=== PATIENT | female | born 1940 | race Caucasian/White ===

== ENCOUNTER 2017-08-25 19:20 | Emergency (ER) | payer MEDICARE, OTHER ==
[~2017-08-25] VITALS: Ht 170.2 cm; Wt 81.7 kg
[~2017-08-25 19:20] MED LIST: ACET325 PO; ALBU.083IS IH; ALBU3IS INH; ALBU90OI INH; ALBU90OI6 INH; ALBUIS IH; AMLO5 PO; AMOX500 PO; AMOX875 PO; ASCO1ER PO; AZIT250 PO; Aspirin EC81 MG PO; BENZ100A PO; CIPR500 PO; CLIN150 PO; CYCL10 PO; DOXY100 PO; FLUSAL1005 IH; FLUSAL2505 IH; FLUT.05NI; FLUT110OIA IH; FLUT44OIA IH; FLUTICASONE PROPIONA; GLIM2 PO; GLIP5 PO; GUAIFENESIN PO; HYDCHLSU PO; Keflex500 MG PO; LORA10ER PO; METF500 PO; METF500C; MONT10T PO; Mucinex600 MG PO; OMEP20ER PO; OXYM.05NI; PRED10 PO; PRED20 PO; PROCODE120 PO; PROM25 PO; PSEU120ER PO; Percocet 5-3251 EACH PO; Prednisone20 MG PO; Prilosec20 MG PO; RXHYDACE PO; RXPROCODSY PO; SELENIUM PO; SULTRIDS PO; XOLAIR INJ
[2017-08-25] MEDS ORDERED: [UNRECOGNIZED DRUG - OTHER] (19:49)
[2017-08-25 20:32] LABS: Alanine Aminotransfer (ALT/SGP 59 U/L (12-78); Alk Phos 106 U/L (50-136); Anion Gap 9 mmol/L (6-16); Aspartate Aminotrans (AST/SGOT 53 U/L (12-37); Bilirubin, Total 0.5 mg/dL (0.1-1.0); Blood Urea Nitrogen 15 mg/dL (8-24); Bun/Creatinine Ratio 20.1 (12.0-20.0); CO2, Blood 25 mmol/L (21-32); Calcium, Blood 9.5 mg/dL (8.5-10.1); Chloride, Blood 104 mmol/L (98-108); Creatinine, Blood 0.75 mg/dL (0.40-1.00); Glomerular Filtration Rate >60 (60-); Glucose, Blood 91 mg/dL (70-99); Potassium, Blood 3.8 mmol/L (3.5-5.5); Sodium, Blood 138 mmol/L (136-145); Troponin I <0.015 ng/mL (0.000-0.040)
[2017-08-25 20:34] LABS: BASOPHILS ABSOLUTE AUTO 0.03 K/mm3 (0.00-0.23); BASOPHILS PERCENT AUTO 0 % (0-2); EOSINOPHILS PERCENT AUTO 14 % (0-6); Hematocrit 40.7 % (33.0-51.0); Hemoglobin 14.1 g/dL (11.5-16.0); IMMATURE GRAN ABSOLUTE AUTO 0.02 K/mm3 (0.00-0.10); IMMATURE GRAN PERCENT AUTO 0 % (0-1); LYMPHOCYTES ABSOLUTE AUTO 3.73 K/mm3 (0.84-5.20); LYMPHOCYTES PERCENT AUTO 37 % (21-46); MONOCYTES ABSOLUTE AUTO 0.46 K/mm3 (0.16-1.47); MONOCYTES PERCENT AUTO 5 % (4-13); Mean Corpuscular HGB 31.8 pg (26.0-34.0); Mean Corpuscular HGB Conc 34.6 g/dL (31.5-36.5); Mean Corpuscular Volume 92 fL (80-100); Mean Platelet Volume 10.9 fL (9.1-12.4); NEUTROPHILS ABSOLUTE AUTO 4.47 K/mm3 (1.96-9.15); NEUTROPHILS PERCENT AUTO 44 % (41-73); Platelet Count 219 K/mm3 (150-400); RDW Coefficient Variation 12.7 % (11.7-14.2); RDW Standard Deviation 42.6 fL (35.1-46.3); Red Blood Cell Count 4.44 M/mm3 (3.80-5.20); White Blood Cell Count 10.11 K/mm3 (4.00-11.30)
[2017-08-25 21:22] LABS: Adenovirus Not Detected (NOT DETECT); Bordetella pertussis Not Detected (NOT DETECT); Chlamydophila pneumoniae Not Detected (NOT DETECT); Coronavirus 229E Not Detected (NOT DETECT); Coronavirus HKU1 Not Detected (NOT DETECT); Coronavirus NL63 Not Detected (NOT DETECT); Coronavirus OC43 Not Detected (NOT DETECT); Human Metapneumovirus Not Detected (NOT DETECT); Human Rhinovirus/Enterovirus Not Detected (NOT DETECT); Influenza A/2009-H1 Not Detected (NOT DETECT); Influenza A/H1 Not Detected (NOT DETECT); Influenza A/H3 Not Detected (NOT DETECT); Influenza B Not Detected (NOT DETECT); Mycoplasma pneumoniae Not Detected (NOT DETECT); Parainfluenza Virus 1 Not Detected (NOT DETECT); Parainfluenza Virus 2 Not Detected (NOT DETECT); Parainfluenza Virus 3 Not Detected (NOT DETECT); Parainfluenza Virus 4 Not Detected (NOT DETECT); Respiratory Syncytial Virus Not Detected (NOT DETECT)
[2017-08-25 21:52] LABS: Source, Urine Clean Catch
[2017-08-25 21:54] LABS: Bilirubin, Urine Neg (Neg); Blood, Urine 1+ (Neg); Glucose Qualitative, Urine Neg (Neg); Ketones, Urine Neg (Neg); Leukocyte Esterase, Urine 3+ (Neg); Nitrite, Urine Neg (Neg); Protein, Urine Neg (Neg); Urobilinogen, Urine NORM (Normal)
[2017-08-25 21:58] LABS: Appearance, Urine Hazy (Clear); Color, Urine Pale Yellow (P-Yellow)
[2017-08-25 22:00] LABS: Bacteria Few /hpf; Red Blood Cells, Urine Rare /hpf (0-2); Squamous Epithelial Cells Rare /hpf (Few); White Blood Cells, Urine 50-100 /hpf (0-5)
[2017-08-25 22:51] LABS: Influenza A Not Detected (NOT DETECT)
[2017-08-25] MEDS ORDERED: BENZ100A PO (23:01)
[2017-08-25] MEDS ORDERED: Mucinex600 MG PO (23:01)
[2017-08-25] MEDS ORDERED: Zithromax250 MG PO (23:01)
== END 2017-08-26 00:05 | disposition home or self-care (01) ==
LOC: ER 19:20
PROVIDERS: Emergency Medicine; Physician Assistant
DX: R05 Cough (principal); Z88.2 Allergy status to sulfonamides; Z88.5 Allergy status to narcotic agent; Z88.8 Allergy status to other drugs, medicaments and biological substances; Z79.899 Other long term (current) drug therapy; Z79.84 Long term (current) use of oral hypoglycemic drugs; Z79.82 Long term (current) use of aspirin; Z79.2 Long term (current) use of antibiotics; E11.9 Type 2 diabetes mellitus without complications
CPT/HCPCS: 36415; 71046; 80053; 81001; 83880; 84484; 85025; 87086; 87486; 87581; 87633; 87798; 93005; 93010; 96365; 99284; J0696

== ENCOUNTER → 2019-03-17 | Outpatient (CLI) | payer MEDICARE, OTHER ==
[~2019-03-17] MED LIST changes: +Zithromax250 MG PO; +[UNRECOGNIZED DRUG - OTHER]
[2019-03-21 15:07] LABS: HPV 16 Negative (Negative); HPV 18 Negative (Negative); HPV OTHER HR TYPES Negative (Negative)
== END | disposition home or self-care (01) ==
LOC: LAB 10:24 → LAB SHORT 10:24
PROVIDERS: Nurse Practitioner Women's Health
DX: Z12.72 Encounter for screening for malignant neoplasm of vagina (principal)
CPT/HCPCS: 87624; G0123

== ENCOUNTER → 2019-07-07 | Outpatient (CLI) | payer MEDICARE, OTHER | END | disposition home or self-care (01) | LOC: LAB SHORT 17:38 → LAB 17:38 | DX: N89.8 Other specified noninflammatory disorders of vagina (principal) | CPT/HCPCS: 87070; 87205 ==

== ENCOUNTER → 2019-10-30 | Outpatient (CLI) | payer MEDICARE, OTHER | LOC: LAB EV 16:42 → LAB SHORT 16:42 | DX: N39.0 Urinary tract infection, site not specified (principal) | CPT/HCPCS: 87077; 87086; 87186 ==

== ENCOUNTER → 2020-05-16 | Outpatient (CLI) | payer MEDICARE, OTHER ==
[~2020-05-16] MED LIST changes: +ALBU2.5V5 INH; +DELTASONE20 MG PO
[2020-05-16 12:13] LABS: BASOPHILS ABSOLUTE AUTO 0.03 K/mm3 (0.00-0.23); BASOPHILS PERCENT AUTO 0 % (0-2); EOSINOPHILS ABSOLUTE AUTO 0.85 K/mm3 (0.00-0.68); EOSINOPHILS PERCENT AUTO 11 % (0-6); Hematocrit 38.7 % (33.0-51.0); Hemoglobin 13.4 g/dL (11.5-16.0); IMMATURE GRAN ABSOLUTE AUTO 0.03 K/mm3 (0.00-0.10); IMMATURE GRAN PERCENT AUTO 0 % (0-1); LYMPHOCYTES ABSOLUTE AUTO 1.35 K/mm3 (0.84-5.20); LYMPHOCYTES PERCENT AUTO 18 % (21-46); MONOCYTES PERCENT AUTO 7 % (4-13); Mean Corpuscular HGB 31.5 pg (26.0-34.0); Mean Corpuscular HGB Conc 34.6 g/dL (31.5-36.5); Mean Corpuscular Volume 91 fL (80-100); Mean Platelet Volume 10.6 fL (9.1-12.4); NEUTROPHILS ABSOLUTE AUTO 4.71 K/mm3 (1.96-9.15); NEUTROPHILS PERCENT AUTO 63 % (41-73); Platelet Count 153 K/mm3 (150-400); RDW Coefficient Variation 12.8 % (11.7-14.2); RDW Standard Deviation 41.6 fL (35.1-46.3); Red Blood Cell Count 4.25 M/mm3 (3.80-5.20); White Blood Cell Count 7.47 K/mm3 (4.00-11.30)
[2020-05-16 12:32] LABS: Albumin, Blood 3.8 g/dL (3.4-5.0); Bilirubin, Total 0.8 mg/dL (0.1-1.0); Bun/Creatinine Ratio 9.9 (12.0-20.0); Calcium, Blood 9.1 mg/dL (8.5-10.1); Creatinine, Blood 1.01 mg/dL (0.40-1.00); Globulin, Blood 3.7 g/dL (2.2-4.0); Potassium, Blood 3.8 mmol/L (3.5-5.5); Thyroid Stimulating Hormone 1.219 uIU/mL (0.360-4.800); Total Protein, Blood 7.5 g/dL (6.4-8.2)
== END | disposition home or self-care (01) ==
LOC: LAB EV 12:06 → LAB SHORT 12:06
PROVIDERS: Physician Assistant Medical
DX: R05 Cough (principal); R53.83 Other fatigue
CPT/HCPCS: 80053; 84443; 85025

== ENCOUNTER 2020-05-23 17:51 | Emergency (ER) | payer MEDICARE, OTHER ==
[~2020-05-23] VITALS: Ht 170.2 cm; Wt 76.2 kg
[~2020-05-23 17:51] MED LIST changes: -DELTASONE20 MG PO
[2020-05-23 18:53] LABS: BASOPHILS ABSOLUTE AUTO 0.06 K/mm3 (0.00-0.23); BASOPHILS PERCENT AUTO 1 % (0-2); EOSINOPHILS ABSOLUTE AUTO 1.02 K/mm3 (0.00-0.68); EOSINOPHILS PERCENT AUTO 17 % (0-6); Hematocrit 40.9 % (33.0-51.0); Hemoglobin 13.6 g/dL (11.5-16.0); IMMATURE GRAN ABSOLUTE AUTO 0.02 K/mm3 (0.00-0.10); IMMATURE GRAN PERCENT AUTO 0 % (0-1); LYMPHOCYTES ABSOLUTE AUTO 1.86 K/mm3 (0.84-5.20); LYMPHOCYTES PERCENT AUTO 31 % (21-46); MONOCYTES ABSOLUTE AUTO 0.46 K/mm3 (0.16-1.47); MONOCYTES PERCENT AUTO 8 % (4-13); Mean Corpuscular HGB 30.8 pg (26.0-34.0); Mean Corpuscular HGB Conc 33.3 g/dL (31.5-36.5); Mean Corpuscular Volume 93 fL (80-100); NEUTROPHILS PERCENT AUTO 43 % (41-73); Platelet Count 192 K/mm3 (150-400); RDW Coefficient Variation 12.9 % (11.7-14.2); RDW Standard Deviation 44.5 fL (35.1-46.3); Red Blood Cell Count 4.41 M/mm3 (3.80-5.20); White Blood Cell Count 6.02 K/mm3 (4.00-11.30)
[2020-05-23 19:18] LABS: Alanine Aminotransfer (ALT/SGP 44 U/L (12-78); Albumin, Blood 3.6 g/dL (3.4-5.0); Albumin/Globulin Ratio 0.9 (0.8-1.8); Alk Phos 89 U/L (50-136); Anion Gap 6 mmol/L (6-16); Aspartate Aminotrans (AST/SGOT 31 U/L (12-37); Bilirubin, Total 0.5 mg/dL (0.1-1.0); Blood Urea Nitrogen 4 mg/dL (8-24); Bun/Creatinine Ratio 6.4 (12.0-20.0); CO2, Blood 28 mmol/L (21-32); Calcium, Blood 9.6 mg/dL (8.5-10.1); Chloride, Blood 107 mmol/L (98-108); Creatinine, Blood 0.63 mg/dL (0.40-1.00); Globulin, Blood 3.8 g/dL (2.2-4.0); Glomerular Filtration Rate >60 (60-); Glucose, Blood 329 mg/dL (70-99); Potassium, Blood 3.8 mmol/L (3.5-5.5); Sodium, Blood 141 mmol/L (136-145); Total Protein, Blood 7.4 g/dL (6.4-8.2); Troponin I <0.015 ng/mL (0.000-0.040)
[2020-05-24] MEDS ORDERED: DELTASONE20 MG PO (00:46)
== END 2020-05-24 00:58 | disposition home or self-care (01) ==
LOC: ER 17:51
PROVIDERS: Physician Assistant
DX: J40 Bronchitis, not specified as acute or chronic (principal); E11.9 Type 2 diabetes mellitus without complications; Z88.4 Allergy status to anesthetic agent; Z88.8 Allergy status to other drugs, medicaments and biological substances; Z79.84 Long term (current) use of oral hypoglycemic drugs; Z79.82 Long term (current) use of aspirin; Z79.899 Other long term (current) drug therapy
CPT/HCPCS: 36415; 71046; 80053; 83880; 84484; 85025; 85379; 93005; 93010; 99285-25; J7512

== ENCOUNTER 2020-06-13 03:15 | Inpatient (IN) | payer MEDICARE, OTHER ==
[~2020-06-13] VITALS: Ht 170.2 cm; Wt 71.1 kg
[~2020-06-13 03:15] MED LIST changes: +DELTASONE20 MG PO
[2020-06-13] MEDS ORDERED: GLIP5 PO (03:32)
[2020-06-13 03:35] LABS: BASOPHILS ABSOLUTE AUTO 0.04 K/mm3 (0.00-0.23); BASOPHILS PERCENT AUTO 0 % (0-2); EOSINOPHILS ABSOLUTE AUTO 1.77 K/mm3 (0.00-0.68); EOSINOPHILS PERCENT AUTO 19 % (0-6); Hematocrit 38.5 % (33.0-51.0); Hemoglobin 12.8 g/dL (11.5-16.0); IMMATURE GRAN ABSOLUTE AUTO 0.02 K/mm3 (0.00-0.10); IMMATURE GRAN PERCENT AUTO 0 % (0-1); LYMPHOCYTES ABSOLUTE AUTO 3.39 K/mm3 (0.84-5.20); LYMPHOCYTES PERCENT AUTO 36 % (21-46); MONOCYTES ABSOLUTE AUTO 0.66 K/mm3 (0.16-1.47); MONOCYTES PERCENT AUTO 7 % (4-13); Mean Corpuscular HGB 31.1 pg (26.0-34.0); Mean Corpuscular HGB Conc 33.2 g/dL (31.5-36.5); Mean Corpuscular Volume 94 fL (80-100); Mean Platelet Volume 10.5 fL (9.1-12.4); NEUTROPHILS ABSOLUTE AUTO 3.46 K/mm3 (1.96-9.15); NEUTROPHILS PERCENT AUTO 37 % (41-73); Platelet Count 154 K/mm3 (150-400); RDW Coefficient Variation 13.1 % (11.7-14.2); RDW Standard Deviation 45.2 fL (35.1-46.3); Red Blood Cell Count 4.11 M/mm3 (3.80-5.20); White Blood Cell Count 9.34 K/mm3 (4.00-11.30)
[2020-06-13 03:58] LABS: Alanine Aminotransfer (ALT/SGP 35 U/L (12-78); Albumin, Blood 3.4 g/dL (3.4-5.0); Albumin/Globulin Ratio 0.9 (0.8-1.8); Alk Phos 78 U/L (50-136); Anion Gap 10 mmol/L (6-16); Aspartate Aminotrans (AST/SGOT 28 U/L (12-37); Bilirubin, Total 0.5 mg/dL (0.1-1.0); Blood Urea Nitrogen 7 mg/dL (8-24); Bun/Creatinine Ratio 10.7 (12.0-20.0); CO2, Blood 26 mmol/L (21-32); Calcium, Blood 8.9 mg/dL (8.5-10.1); Chloride, Blood 104 mmol/L (98-108); Creatinine, Blood 0.66 mg/dL (0.40-1.00); Globulin, Blood 3.9 g/dL (2.2-4.0); Glomerular Filtration Rate >60 (60-); Glucose, Blood 242 mg/dL (70-99); Potassium, Blood 3.5 mmol/L (3.5-5.5); Sodium, Blood 140 mmol/L (136-145); Total Protein, Blood 7.3 g/dL (6.4-8.2); Troponin I <0.015 ng/mL (0.000-0.040)
--- NOTE | 2020-06-13 04:57 | NUR ---
0440 PT ADMITTED TO PCU-7 PER CART FROM ER; PT MOVED FROM CART TO BED PER SELF X 1 STANDBY ASSIST; REPORT RECEIVED FROM NURYS CANTRELL VIA ER; DENIES PAIN OR NAUSEA; ALERT AND ORIENTED X 4; BED ALARM APPLIED FOR SAFETY, BED LOW POSITION WITH CALL LIGHT AT SIDE.
--- NOTE | 2020-06-13 05:31 | NUR ---
SHIFT SUMMARY: 80 Y/O FEMALE RESTED COMFORTABLY IN THIS SHIFT; NPO AT THIS TIME; DENIES PAIN OR NAUSEA; TELEMETRY REFLECTS SINUS TACHYCARDIA PER TELEMETRY PER INA--CHAZ TECH; ALERT AND ORIENTED X 4; BED ALARM APPLIED, BED LOW POSITION WITH CALL LIGHT AT SIDE.
--- NOTE | 2020-06-13 11:53 | NUR ---
Patient is lying in bed and alert. Patient very talkative and openly shares about her medical history, family history and her saji history (patient is church) . Patient explains about the of her spouse in 2008 with tears in her eyes. Patient also talks about the current jasbir of being able to help raise her grandson and granddaughter. I listen empathically, reinforce helpful attitudes and practices and provide grief support, pastoral relationship counselor and prayer. Patient responds well and shows signs of restored saji and being encouraged. I will continue to remain available to patient and family.
[2020-06-13 14:56] LABS: Adenovirus Not Detected (NOT DETECT); Bordetella pertussis Not Detected (NOT DETECT); Chlamydophila pneumoniae Not Detected (NOT DETECT); Coronavirus 229E Not Detected (NOT DETECT); Coronavirus HKU1 Not Detected (NOT DETECT); Coronavirus NL63 Not Detected (NOT DETECT); Coronavirus OC43 Not Detected (NOT DETECT); Human Metapneumovirus Not Detected (NOT DETECT); Human Rhinovirus/Enterovirus Not Detected (NOT DETECT); Influenza A/2009-H1 Not Detected (NOT DETECT); Influenza A/H1 Not Detected (NOT DETECT); Influenza A/H3 Not Detected (NOT DETECT); Influenza B Not Detected (NOT DETECT); Mycoplasma pneumoniae Not Detected (NOT DETECT); Parainfluenza Virus 1 Not Detected (NOT DETECT); Parainfluenza Virus 2 Not Detected (NOT DETECT); Parainfluenza Virus 3 Not Detected (NOT DETECT); Parainfluenza Virus 4 Not Detected (NOT DETECT); Respiratory Syncytial Virus Not Detected (NOT DETECT); SARS-Cov-2 (COVID-19), BioFire Not Detected (NOT DETECT)
--- NOTE | 2020-06-13 17:42 | NUR ---
SHIFT SUMMARY; A/A/OX4 DURING SHIFT, SBA ASSIST TO RESTROOM WITH WALKER USE. STEADY ON FEET. DENIES SOB, REMAINS ON RA. L/S WHEEZY THROUGHOUT, REPORTS RECENTLY BEING TOLD HAS ASTHMA. MEDICATED PER ORDERS DURING SHIFT. NO ACUTE MEDICAL CHANGES, WILL CONTINUE TO MONITOR AND TREAT UNTIL CHANGE OF SHIFT. VSS.
--- NOTE | 2020-06-13 22:19 | NUR ---
NOTIFIED [place] FRIEND OF 483 CBG. NEW ORDERS FOR ONE TIME INSULIN COVERAGE OBTAINED. SEE EMAR. PT ASYMPTOMATIC, IS CURRENTLY RESTING COMFORTABLY IN BED WITH CALL LIGHT IN REACH AND DENIES NEEDS. WILL ADMINISTER MEDICATION PER ORDERS AND CONT TO MONITOR PATIENT FOR CHANGES.
--- NOTE | 2020-06-14 03:40 | NUR ---
SHIFT SUMMARY PT A/OX4 WITH VSS. CBG ELEVATED, SEE PREVIOUS NOTE. MEDICATED X1 FOR HYPERGLYCEMIA. LS WHEEZY T/O, BREATHING TX X 1. USING FLUTTER VALVE PRN. MEDICATED 1X FOR COUGHING EPISODE. AMB WITH SBA TO BATHROOM, DENIES SOB OR DYSPNEA. SPO2 ABOVE 93% ON RA. PT CURRENTLY RESTING IN BED WITH EYES CLOSED IN SEMI FOLWER POSITION. HAS CALL LIGHT IN REACH WITH BED IN LOWEST POSITION. WILL CONTINUE TO MONITOR AND GIVE SHIFT CHANGE REPORT TO ONCOMING RN.
[2020-06-14 04:40] LABS: BASOPHILS ABSOLUTE AUTO 0.01 K/mm3 (0.00-0.23); BASOPHILS PERCENT AUTO 0 % (0-2); EOSINOPHILS ABSOLUTE AUTO 0.01 K/mm3 (0.00-0.68); EOSINOPHILS PERCENT AUTO 0 % (0-6); Hemoglobin 11.3 g/dL (11.5-16.0); IMMATURE GRAN ABSOLUTE AUTO 0.06 K/mm3 (0.00-0.10); IMMATURE GRAN PERCENT AUTO 1 % (0-1); LYMPHOCYTES ABSOLUTE AUTO 1.68 K/mm3 (0.84-5.20); LYMPHOCYTES PERCENT AUTO 18 % (21-46); MONOCYTES ABSOLUTE AUTO 0.27 K/mm3 (0.16-1.47); MONOCYTES PERCENT AUTO 3 % (4-13); Mean Corpuscular HGB 30.7 pg (26.0-34.0); Mean Corpuscular HGB Conc 33.2 g/dL (31.5-36.5); Mean Corpuscular Volume 92 fL (80-100); Mean Platelet Volume 11.2 fL (9.1-12.4); NEUTROPHILS ABSOLUTE AUTO 7.27 K/mm3 (1.96-9.15); NEUTROPHILS PERCENT AUTO 78 % (41-73); Platelet Count 144 K/mm3 (150-400); RDW Coefficient Variation 13.1 % (11.7-14.2); RDW Standard Deviation 44.5 fL (35.1-46.3); Red Blood Cell Count 3.68 M/mm3 (3.80-5.20)
[2020-06-14 05:09] LABS: Alanine Aminotransfer (ALT/SGP 32 U/L (12-78); Albumin, Blood 3.1 g/dL (3.4-5.0); Albumin/Globulin Ratio 0.9 (0.8-1.8); Alk Phos 64 U/L (50-136); Anion Gap 10 mmol/L (6-16); Aspartate Aminotrans (AST/SGOT 18 U/L (12-37); Bilirubin, Total 0.6 mg/dL (0.1-1.0); Blood Urea Nitrogen 22 mg/dL (8-24); Bun/Creatinine Ratio 33.5 (12.0-20.0); CO2, Blood 24 mmol/L (21-32); Calcium, Blood 9.1 mg/dL (8.5-10.1); Chloride, Blood 105 mmol/L (98-108); Creatinine, Blood 0.66 mg/dL (0.40-1.00); Globulin, Blood 3.4 g/dL (2.2-4.0); Glomerular Filtration Rate >60 (60-); Glucose, Blood 263 mg/dL (70-99); Potassium, Blood 3.9 mmol/L (3.5-5.5); Sodium, Blood 139 mmol/L (136-145); Total Protein, Blood 6.5 g/dL (6.4-8.2)
--- NOTE | 2020-06-14 07:24 | NUR ---
SHIFT CHANGE REPORT GIVEN TO NURYS ACHARYA
--- NOTE | 2020-06-14 08:52 | NUR ---
permission of care was given 06/14/20 at 0730.
--- NOTE | 2020-06-14 12:52 | NUR ---
PATIENT ARRIVED TO THE UNIT AT 1250. NO COMPLAINTS AT THIS TIME. WILL CONTINUE TO MONITOR
--- NOTE | 2020-06-14 17:48 | NUR ---
PATIENT IS ALERT AND ORIENTED AND COOPERATIVE WITH CARE. SHE TRANSFERRED TO MEDICAL FLOOR FROM PCU THIS AFTERNOON. PATIENT IS SATURATING 96% ON RA, WITH NO COMPLAINTS OF SOB. SHE IS A SBA TO THE BATHROOM. SHE IS SITTING ON THE SIDE OF THE BED EATING DINNER AT THIS TIME. WILL CONTINUE TO MONITOR
--- NOTE | 2020-06-15 05:06 | NUR ---
SHIFT SUMMARY: VSS. AFEB. 02 SAT 95% ON RA. LATE EXP WHEEZE AUSCULTATED THROUGHOUT. PT DENIES SOB. INTERMITTENT HACKING, PRODUCTIVE COUGH. PT STATES SPUTUM GETS CAUGHT IN THROAT WHERE SHE THEN COUGHS MORE ON IT. STATES SPUTUM IS CLEAR TO YELLOW AND THICK. TESSALON PERRLES AND ROBITUSSIN GIVEN EFFECTIVELY. NO ACUTE CONCERNS AT THIS TIME. WILL CONT TO MONITOR.
--- NOTE | 2020-06-15 07:37 | NUR ---
NOC NURSE GAVE REPORT, PT AWAKE, NOTED tremors in hands when taking medication, able to talk wo sob, wheeze/exhale, old bump on l foot, denies pain to feet or hands, bm yesterday, a+o, cooperative, call light in reach, changed pull up, cbg 301, looking forward to breakfast, will continue to monitor and treat
--- NOTE | 2020-06-15 11:45 | NUR ---
dr in to visit, concerned with lack of control of cbg, will check again andsee if lower, pt states she does not ck bs at home
--- NOTE | 2020-06-15 12:41 | NUR ---
cbg 313 changed insulin order and informed pt she would need to spend the night, changed other meds to help control bs
--- NOTE | 2020-06-15 13:54 | NUR ---
Patient is sitting on EOB and alert. Patient explains about the health and financial issues her grandson has been having and the tangible ways she has been able to help him. She talks about the living arrangements she has with her daughter living with her and two of her other daughter's kids and how they have a daycare in their home. This turns out to be a bit noisey and not very restful. Patient asks me to prayer for her grandson and for patient's blood sugar levels. I gladly provide prayer. I normalize patient's experience, provide therapeutic listening and encourage self care. Patient responds well and shows signs of an elevated mood. I will continue to remain available to patient and family.
--- NOTE | 2020-06-15 19:19 | NUR ---
a+o, family at bedside, shared sbar report with noc nurse who agreed to work with pt about how to check bs, day shift went over it but she needs to do it on own at home, cheerful and cooperative, iv and call light working as designed
--- NOTE | 2020-06-15 20:33 | NUR ---
1950 PTS DAUGHTER AT SIDE WITH PATIENT AND WAS INSTRUCTED ON THE FOLLOWING REGARDING DIABETES: 1. SITES TO GIVE INSULIN: ABD, BILATERAL ARMS; BILATERAL LEGS VASTUS LATERALUS; BUTTOCKS. 2. CHECKING INSULIN SCALE AND READING HOW MUCH INSULIN TO GIVE. 3. CHECKING INSULIN PEN AND HOW TO ADMINISTER CORRECT AMOUNT OF INSULIN. 4. RECORDING CBG AND AMOUNT INSULIN GIVEN DAILY. 5. READING FOOD LABELS: PT/DAUGHTER READ ENSURE SHAKE AND PUDDING CONTAINER. REINFORCEMENT REQUIRED.
--- NOTE | 2020-06-16 03:17 | NUR ---
SHIFT SUMMARY: 80 Y/O FEMALE RESTED COMFORTABLY ALL SHIFT; DENIES PAIN OR NAUSEA; PT HAD COUGH MIDDLE OF SHIFT WITH ROBITUSSIN AND TESSALON PEARLES PROVIDING RELIEF; PT AND DAUGHTER ROBBI WERE EDUCATED ON DIABETES AND HOW TO CHECK CBG, GIVE INSULIN WITH FURTHER REINFORCEMENT REQUIRED; PT/CG WOULD BENEFIT FROM HOME HEALTH CARE REFERRAL FOR RN CONTINUED TEACHING ON DM UPON DISCHARGE HOME; PT ALERT AND ORIENTED X 4 AND EAGER TO RETURN HOME; BED ALARM APPLIED FOR SAFETY, BED LOW POSITION WITH CALL LIGHT AT SIDE.
[2020-06-16] MEDS ORDERED: AZIT500 PO (12:53)
[2020-06-16] MEDS ORDERED: Q-Tussin100 MG/5 M PO (12:54)
[2020-06-16] MEDS ORDERED: GLIP5ER PO (12:55)
[2020-06-16] MEDS ORDERED: Prednisone10 MG PO (12:57)
[2020-06-16] MEDS ORDERED: IPRAT-ALBUT 0.5-3 ML INH (12:59)
[2020-06-16] MEDS ORDERED: MONT10T PO (12:59)
--- NOTE | 2020-06-16 14:25 | NUR ---
DISCHARGE DISCHARGE INSTRUCTIONS, MEDICATION LIST AND FOLLOW UP APPOINTMENTS REVIEWED WITH PT. QUESTIONS/CONCERNS ANSWERED. [facility] TO CALL PT TO SET UP APPOINTMENT WITH HER PCP OR SHE CAN CALL [facility] ON THURSDAY. PT ESCORTED OUT VIA W/C BY SANDEE
== END 2020-06-16 15:22 | disposition home or self-care (01) | DRG 202 ==
LOC: ER 03:15 → PCU 03:16 → MEDS 06-14 12:39
PROVIDERS: Emergency Medicine; ADMIT Internal Medicine
DX: J45.41 Moderate persistent asthma with (acute) exacerbation (principal); J96.01 Acute respiratory failure with hypoxia; E11.9 Type 2 diabetes mellitus without complications; Z79.82 Long term (current) use of aspirin; G25.0 Essential tremor; E11.65 Type 2 diabetes mellitus with hyperglycemia; M19.90 Unspecified osteoarthritis, unspecified site; T38.0X5A Adverse effect of glucocorticoids and synthetic analogues, initial encounter; Y92.230 Patient room in hospital as the place of occurrence of the external cause; J20.9 Acute bronchitis, unspecified; Z79.84 Long term (current) use of oral hypoglycemic drugs
CPT/HCPCS: 0202U; 36415; 71045; 80053; 82947; 83880; 84484; 85025; 93005; 93010; 94640; 94644; 94664; 94667; 94668; 94760; 96372; 96374; 96376; 98960; 99285-25; A9270-GY; G0378; J1650; J2930; J7512

== ENCOUNTER 2021-02-03 12:03 | Emergency (ER) | payer MEDICARE, OTHER ==
[~2021-02-03] VITALS: Ht 170.2 cm; Wt 68.0 kg
[~2021-02-03 12:03] MED LIST changes: +AZIT500 PO; +GLIP5ER PO; +IPRAT-ALBUT 0.5-3 ML INH; +Prednisone10 MG PO; +Q-Tussin100 MG/5 M PO
[2021-02-03 12:43] LABS: BASOPHILS ABSOLUTE AUTO 0.02 K/mm3 (0.00-0.23); BASOPHILS PERCENT AUTO 0 % (0-2); EOSINOPHILS PERCENT AUTO 38 % (0-6); Hematocrit 35.5 % (33.0-51.0); Hemoglobin 12.1 g/dL (11.5-16.0); IMMATURE GRAN ABSOLUTE AUTO 0.05 K/mm3 (0.00-0.10); IMMATURE GRAN PERCENT AUTO 0 % (0-1); LYMPHOCYTES PERCENT AUTO 10 % (21-46); MONOCYTES ABSOLUTE AUTO 0.47 K/mm3 (0.16-1.47); MONOCYTES PERCENT AUTO 4 % (4-13); Mean Corpuscular HGB 31.4 pg (26.0-34.0); Mean Corpuscular HGB Conc 34.1 g/dL (31.5-36.5); Mean Corpuscular Volume 92 fL (80-100); Mean Platelet Volume 9.9 fL (9.1-12.4); NEUTROPHILS ABSOLUTE AUTO 5.56 K/mm3 (1.96-9.15); NEUTROPHILS PERCENT AUTO 47 % (41-73); Platelet Count 164 K/mm3 (150-400); RDW Coefficient Variation 12.3 % (11.7-14.2); RDW Standard Deviation 42.3 fL (35.1-46.3); Red Blood Cell Count 3.85 M/mm3 (3.80-5.20)
[2021-02-03 13:02] LABS: Alanine Aminotransfer (ALT/SGP 26 U/L (12-78); Albumin, Blood 3.4 g/dL (3.4-5.0); Albumin/Globulin Ratio 0.9 (0.8-1.8); Alk Phos 86 U/L (50-136); Anion Gap 6 mmol/L (6-16); Aspartate Aminotrans (AST/SGOT 14 U/L (12-37); Bilirubin, Total 0.6 mg/dL (0.1-1.0); Blood Urea Nitrogen 13 mg/dL (8-24); Bun/Creatinine Ratio 17.2 (12.0-20.0); CO2, Blood 25 mmol/L (21-32); Calcium, Blood 8.9 mg/dL (8.5-10.1); Chloride, Blood 105 mmol/L (98-108); Creatinine, Blood 0.76 mg/dL (0.40-1.00); Globulin, Blood 3.8 g/dL (2.2-4.0); Glomerular Filtration Rate >60 (60-); Glucose, Blood 267 mg/dL (70-99); Sodium, Blood 136 mmol/L (136-145); Total Protein, Blood 7.2 g/dL (6.4-8.2)
[2021-02-03 14:07] LABS: Source, Urine Clean Catch
[2021-02-03 14:17] LABS: Appearance, Urine Clear (Clear); Bilirubin, Urine Neg (Neg); Blood, Urine Neg (Neg); Color, Urine Yellow (P-Yellow); Glucose Qualitative, Urine 4+ (Neg); Ketones, Urine 1+ (Neg); Leukocyte Esterase, Urine 2+ (Neg); Nitrite, Urine Neg (Neg); Protein, Urine 2+ (Neg); Urobilinogen, Urine 2+ (Normal)
[2021-02-03 14:27] LABS: Red Blood Cells, Urine Not Seen /hpf (0-2)
[2021-02-03 14:28] LABS: Bacteria Mod /hpf; Mucus Light (0-Heavy); Squamous Epithelial Cells Few /hpf (Few)
[2021-02-03] MEDS ORDERED: AQUAPHOR ITCH R28 GM TOP (14:57)
[2021-02-03] MEDS ORDERED: Macrobid 100 M100 MG PO (14:57)
== END 2021-02-03 15:03 | disposition home or self-care (01) ==
LOC: ER 12:03
PROVIDERS: Physician Assistant
DX: N39.0 Urinary tract infection, site not specified (principal); E11.9 Type 2 diabetes mellitus without complications; Z79.52 Long term (current) use of systemic steroids; Z79.899 Other long term (current) drug therapy
CPT/HCPCS: 36415; 80053; 81001; 82947; 85025; 87086; 99283

== ENCOUNTER 2021-02-05 01:00 | Emergency (ER) | payer MEDICARE, OTHER ==
[~2021-02-05] VITALS: Ht 170.2 cm; Wt 68.0 kg
[~2021-02-05 01:00] MED LIST changes: +AQUAPHOR ITCH R28 GM TOP; +Macrobid 100 M100 MG PO
[2021-02-05 03:03] LABS: BASOPHILS ABSOLUTE AUTO 0.04 K/mm3 (0.00-0.23); BASOPHILS PERCENT AUTO 0 % (0-2); EOSINOPHILS ABSOLUTE AUTO 6.23 K/mm3 (0.00-0.68); EOSINOPHILS PERCENT AUTO 44 % (0-6); Hematocrit 38.2 % (33.0-51.0); Hemoglobin 13.1 g/dL (11.5-16.0); IMMATURE GRAN ABSOLUTE AUTO 0.03 K/mm3 (0.00-0.10); IMMATURE GRAN PERCENT AUTO 0 % (0-1); LYMPHOCYTES ABSOLUTE AUTO 1.47 K/mm3 (0.84-5.20); LYMPHOCYTES PERCENT AUTO 10 % (21-46); MONOCYTES ABSOLUTE AUTO 0.55 K/mm3 (0.16-1.47); MONOCYTES PERCENT AUTO 4 % (4-13); Mean Corpuscular HGB 31.1 pg (26.0-34.0); Mean Corpuscular HGB Conc 34.3 g/dL (31.5-36.5); Mean Corpuscular Volume 91 fL (80-100); Mean Platelet Volume 10.2 fL (9.1-12.4); NEUTROPHILS ABSOLUTE AUTO 5.77 K/mm3 (1.96-9.15); NEUTROPHILS PERCENT AUTO 41 % (41-73); Platelet Count 187 K/mm3 (150-400); RDW Coefficient Variation 12.4 % (11.7-14.2); RDW Standard Deviation 40.9 fL (35.1-46.3); Red Blood Cell Count 4.21 M/mm3 (3.80-5.20); White Blood Cell Count 14.09 K/mm3 (4.00-11.30)
[2021-02-05 03:18] LABS: Alanine Aminotransfer (ALT/SGP 28 U/L (12-78); Albumin, Blood 3.6 g/dL (3.4-5.0); Albumin/Globulin Ratio 0.9 (0.8-1.8); Alk Phos 83 U/L (50-136); Anion Gap 9 mmol/L (6-16); Aspartate Aminotrans (AST/SGOT 15 U/L (12-37); Bilirubin, Total 0.5 mg/dL (0.1-1.0); Blood Urea Nitrogen 13 mg/dL (8-24); Bun/Creatinine Ratio 20.5 (12.0-20.0); CO2, Blood 24 mmol/L (21-32); Calcium, Blood 9.1 mg/dL (8.5-10.1); Chloride, Blood 103 mmol/L (98-108); Creatinine, Blood 0.63 mg/dL (0.40-1.00); Glomerular Filtration Rate >60 (60-); Glucose, Blood 195 mg/dL (70-99); Magnesium, Blood 1.9 mg/dL (1.6-2.4); Potassium, Blood 3.6 mmol/L (3.5-5.5); Sodium, Blood 136 mmol/L (136-145); Total Protein, Blood 7.6 g/dL (6.4-8.2); Troponin I <0.015 ng/mL (0.000-0.040)
[2021-02-05] MEDS ORDERED: Prednisone50 MG PO (06:45)
== END 2021-02-05 08:02 | disposition home or self-care (01) ==
LOC: ER 01:00
PROVIDERS: Emergency Medicine
DX: J44.0 Chronic obstructive pulmonary disease with (acute) lower respiratory infection (principal); J18.9 Pneumonia, unspecified organism; J44.1 Chronic obstructive pulmonary disease with (acute) exacerbation; J98.01 Acute bronchospasm; Z79.84 Long term (current) use of oral hypoglycemic drugs; Z79.899 Other long term (current) drug therapy
CPT/HCPCS: 36415; 71045; 80053; 83735; 83880; 84484; 85025; 93005; 93010; 94644; 99285-25; A9270; J7512

== ENCOUNTER → 2021-10-03 | Outpatient (CLI) | payer MEDICARE, OTHER ==
[~2021-10-03] MED LIST changes: +Prednisone50 MG PO
[2021-10-03 11:34] LABS: BASOPHILS ABSOLUTE AUTO 0.05 K/mm3 (0.00-0.23); BASOPHILS PERCENT AUTO 1 % (0-2); EOSINOPHILS ABSOLUTE AUTO 1.32 K/mm3 (0.00-0.68); EOSINOPHILS PERCENT AUTO 17 % (0-6); Hematocrit 37.4 % (33.0-51.0); Hemoglobin 12.8 g/dL (11.5-16.0); IMMATURE GRAN ABSOLUTE AUTO 0.02 K/mm3 (0.00-0.10); IMMATURE GRAN PERCENT AUTO 0 % (0-1); LYMPHOCYTES ABSOLUTE AUTO 2.12 K/mm3 (0.84-5.20); LYMPHOCYTES PERCENT AUTO 27 % (21-46); MONOCYTES PERCENT AUTO 6 % (4-13); Mean Corpuscular HGB 31.5 pg (26.0-34.0); Mean Corpuscular HGB Conc 34.2 g/dL (31.5-36.5); Mean Corpuscular Volume 92 fL (80-100); Mean Platelet Volume 10.2 fL (9.1-12.4); NEUTROPHILS ABSOLUTE AUTO 3.78 K/mm3 (1.96-9.15); NEUTROPHILS PERCENT AUTO 49 % (41-73); Platelet Count 174 K/mm3 (150-400); RDW Coefficient Variation 12.5 % (11.7-14.2); RDW Standard Deviation 42.5 fL (35.1-46.3); Red Blood Cell Count 4.06 M/mm3 (3.80-5.20); White Blood Cell Count 7.79 K/mm3 (4.00-11.30)
[2021-10-03 11:51] LABS: Alanine Aminotransfer (ALT/SGP 33 U/L (12-78); Albumin, Blood 3.9 g/dL (3.4-5.0); Albumin/Globulin Ratio 1.2 (0.8-1.8); Alk Phos 93 U/L (40-126); Anion Gap 10 mmol/L (6-16); Aspartate Aminotrans (AST/SGOT 23 U/L (12-37); Bilirubin, Total 0.7 mg/dL (0.1-1.0); Blood Urea Nitrogen 11 mg/dL (8-24); Bun/Creatinine Ratio 15.3 (12.0-20.0); CO2, Blood 29 mmol/L (21-32); Calcium, Blood 9.2 mg/dL (8.5-10.1); Chloride, Blood 100 mmol/L (98-108); Creatinine, Blood 0.72 mg/dL (0.40-1.00); Globulin, Blood 3.3 g/dL (2.2-4.0); Glomerular Filtration Rate >60 (60-); Glucose, Blood 239 mg/dL (70-99); Potassium, Blood 4.5 mmol/L (3.5-5.5); Sodium, Blood 139 mmol/L (136-145); Total Protein, Blood 7.2 g/dL (6.4-8.2)
== END | disposition home or self-care (01) ==
LOC: LAB 11:30 → LAB SHORT 11:30
PROVIDERS: Family Medicine
DX: R07.9 Chest pain, unspecified (principal)
CPT/HCPCS: 80053; 83880; 84484; 85025

== ENCOUNTER 2021-10-13 09:34 | Emergency (ER) | payer MEDICARE, OTHER ==
[~2021-10-13] VITALS: Ht 170.2 cm; Wt 69.4 kg
[2021-10-13 10:04] LABS: BASOPHILS ABSOLUTE AUTO 0.05 K/mm3 (0.00-0.23); BASOPHILS PERCENT AUTO 1 % (0-2); EOSINOPHILS ABSOLUTE AUTO 0.98 K/mm3 (0.00-0.68); EOSINOPHILS PERCENT AUTO 15 % (0-6); Hematocrit 36.7 % (33.0-51.0); Hemoglobin 12.5 g/dL (11.5-16.0); IMMATURE GRAN ABSOLUTE AUTO 0.02 K/mm3 (0.00-0.10); IMMATURE GRAN PERCENT AUTO 0 % (0-1); LYMPHOCYTES ABSOLUTE AUTO 2.25 K/mm3 (0.84-5.20); LYMPHOCYTES PERCENT AUTO 35 % (21-46); MONOCYTES ABSOLUTE AUTO 0.44 K/mm3 (0.16-1.47); MONOCYTES PERCENT AUTO 7 % (4-13); Mean Corpuscular HGB 31.2 pg (26.0-34.0); Mean Corpuscular HGB Conc 34.1 g/dL (31.5-36.5); Mean Corpuscular Volume 92 fL (80-100); Mean Platelet Volume 10.2 fL (9.1-12.4); NEUTROPHILS ABSOLUTE AUTO 2.65 K/mm3 (1.96-9.15); NEUTROPHILS PERCENT AUTO 42 % (41-73); Platelet Count 142 K/mm3 (150-400); RDW Coefficient Variation 12.3 % (11.7-14.2); RDW Standard Deviation 41.9 fL (35.1-46.3); Red Blood Cell Count 4.01 M/mm3 (3.80-5.20); White Blood Cell Count 6.39 K/mm3 (4.00-11.30)
[2021-10-13 10:31] LABS: Alanine Aminotransfer (ALT/SGP 34 U/L (12-78); Albumin, Blood 3.8 g/dL (3.4-5.0); Albumin/Globulin Ratio 1.1 (0.8-1.8); Alk Phos 93 U/L (50-136); Anion Gap 7 mmol/L (6-16); Aspartate Aminotrans (AST/SGOT 23 U/L (12-37); Bilirubin, Total 0.8 mg/dL (0.1-1.0); Blood Urea Nitrogen 13 mg/dL (8-24); Bun/Creatinine Ratio 21.4 (12.0-20.0); CO2, Blood 26 mmol/L (21-32); Calcium, Blood 9.1 mg/dL (8.5-10.1); Chloride, Blood 104 mmol/L (98-108); Creatinine, Blood 0.61 mg/dL (0.40-1.00); Globulin, Blood 3.4 g/dL (2.2-4.0); Glomerular Filtration Rate >60 (60-); Glucose, Blood 216 mg/dL (70-99); Potassium, Blood 3.6 mmol/L (3.5-5.5); Sodium, Blood 137 mmol/L (136-145); Total Protein, Blood 7.2 g/dL (6.4-8.2)
[2021-10-13] MEDS ORDERED: CLEM1.34 (11:21)
[2021-10-13] MEDS ORDERED: LOSA50 PO (11:23)
[2021-10-13] MEDS ORDERED: Doxycycline Mo100 M1 (11:24)
[2021-10-13] MEDS ORDERED: TRAM50 PO (11:25)
[2021-10-13] MEDS ORDERED: Ventolin5 MG/1 ML INH (12:34)
== END 2021-10-13 12:43 | disposition home or self-care (01) ==
LOC: ER 09:34
PROVIDERS: Physician Assistant
DX: J44.1 Chronic obstructive pulmonary disease with (acute) exacerbation (principal); K21.9 Gastro-esophageal reflux disease without esophagitis; E11.9 Type 2 diabetes mellitus without complications; T78.40XA Allergy, unspecified, initial encounter; Z79.2 Long term (current) use of antibiotics; Z79.84 Long term (current) use of oral hypoglycemic drugs; Z79.899 Other long term (current) drug therapy; Z88.2 Allergy status to sulfonamides; Z88.5 Allergy status to narcotic agent; Z88.8 Allergy status to other drugs, medicaments and biological substances; X58.XXXA Exposure to other specified factors, initial encounter
CPT/HCPCS: 71046; 80053; 84484; 85025; 93005; 93010; 94644; 96374; 99285-25; J2930

== ENCOUNTER 2022-01-12 13:18 | Emergency (ER) | payer MEDICARE, OTHER ==
[~2022-01-12] VITALS: Ht 170.2 cm; Wt 70.3 kg
[~2022-01-12 13:18] MED LIST changes: +CLEM1.34; +Doxycycline Mo100 M1; +LOSA50 PO; +TRAM50 PO; +Ventolin5 MG/1 ML INH
[2022-01-12 13:55] LABS: BASOPHILS ABSOLUTE AUTO 0.03 K/mm3 (0.00-0.23); BASOPHILS PERCENT AUTO 0 % (0-2); EOSINOPHILS ABSOLUTE AUTO 0.81 K/mm3 (0.00-0.68); EOSINOPHILS PERCENT AUTO 12 % (0-6); Hematocrit 39.3 % (33.0-51.0); Hemoglobin 13.2 g/dL (11.5-16.0); IMMATURE GRAN ABSOLUTE AUTO 0.02 K/mm3 (0.00-0.10); IMMATURE GRAN PERCENT AUTO 0 % (0-1); LYMPHOCYTES ABSOLUTE AUTO 0.87 K/mm3 (0.84-5.20); LYMPHOCYTES PERCENT AUTO 13 % (21-46); MONOCYTES ABSOLUTE AUTO 0.44 K/mm3 (0.16-1.47); MONOCYTES PERCENT AUTO 6 % (4-13); Mean Corpuscular HGB 31.2 pg (26.0-34.0); Mean Corpuscular HGB Conc 33.6 g/dL (31.5-36.5); Mean Corpuscular Volume 93 fL (80-100); Mean Platelet Volume 9.9 fL (9.1-12.4); NEUTROPHILS ABSOLUTE AUTO 4.78 K/mm3 (1.96-9.15); NEUTROPHILS PERCENT AUTO 69 % (41-73); Platelet Count 192 K/mm3 (150-400); RDW Coefficient Variation 12.5 % (11.7-14.2); RDW Standard Deviation 42.9 fL (35.1-46.3); Red Blood Cell Count 4.23 M/mm3 (3.80-5.20); White Blood Cell Count 6.95 K/mm3 (4.00-11.30)
[2022-01-12 14:16] LABS: Albumin, Blood 3.8 g/dL (3.4-5.0); Bilirubin, Total 0.8 mg/dL (0.1-1.0); Bun/Creatinine Ratio 27.8 (12.0-20.0); Calcium, Blood 9.2 mg/dL (8.5-10.1); Creatinine, Blood 0.5 mg/dL (0.40-1.00); Globulin, Blood 3.8 g/dL (2.2-4.0); Potassium, Blood 4.2 mmol/L (3.5-5.5); Total Protein, Blood 7.6 g/dL (6.4-8.2)
[2022-01-12 15:52] LABS: Influenza A Negative (NEGATIVE); Influenza B Negative (NEGATIVE)
[2022-01-12 16:23] LABS: SARS-Cov-2 (COVID-19) PCR, MMC NEGATIVE (NEGATIVE)
[2022-01-12] MEDS ORDERED: ALBU2.5V5 NEB (18:03)
[2022-01-12] MEDS ORDERED: METPRE4DP PO (18:03)
[2022-01-12] MEDS ORDERED: AZIT250 PO (18:03)
== END 2022-01-12 18:10 | disposition home or self-care (01) ==
LOC: ER 13:18
PROVIDERS: Physician Assistant
DX: J44.1 Chronic obstructive pulmonary disease with (acute) exacerbation (principal); J20.9 Acute bronchitis, unspecified; J44.0 Chronic obstructive pulmonary disease with (acute) lower respiratory infection; E11.9 Type 2 diabetes mellitus without complications; Z20.822 Contact with and (suspected) exposure to COVID-19; Z79.899 Other long term (current) drug therapy; Z79.52 Long term (current) use of systemic steroids; Z79.84 Long term (current) use of oral hypoglycemic drugs
CPT/HCPCS: 36415; 71045; 80053; 84484; 85025; 87804; 93005; 93010; A9270; J7512; U0004

== ENCOUNTER 2022-04-24 15:39 | Emergency (ER) | payer MEDICARE, OTHER ==
[~2022-04-24] VITALS: Ht 170.2 cm; Wt 68.0 kg
[~2022-04-24 15:39] MED LIST changes: +ALBU2.5V5 NEB; +METPRE4DP PO
[2022-04-24 16:40] LABS: BASOPHILS ABSOLUTE AUTO 0.04 K/mm3 (0.00-0.23); BASOPHILS PERCENT AUTO 1 % (0-2); EOSINOPHILS ABSOLUTE AUTO 0.25 K/mm3 (0.00-0.68); EOSINOPHILS PERCENT AUTO 4 % (0-6); Hematocrit 41.3 % (33.0-51.0); Hemoglobin 14.2 g/dL (11.5-16.0); IMMATURE GRAN ABSOLUTE AUTO 0.02 K/mm3 (0.00-0.10); IMMATURE GRAN PERCENT AUTO 0 % (0-1); LYMPHOCYTES PERCENT AUTO 35 % (21-46); MONOCYTES ABSOLUTE AUTO 0.45 K/mm3 (0.16-1.47); MONOCYTES PERCENT AUTO 7 % (4-13); Mean Corpuscular HGB 31.5 pg (26.0-34.0); Mean Corpuscular HGB Conc 34.4 g/dL (31.5-36.5); Mean Corpuscular Volume 92 fL (80-100); Mean Platelet Volume 10.3 fL (9.1-12.4); NEUTROPHILS ABSOLUTE AUTO 3.78 K/mm3 (1.96-9.15); NEUTROPHILS PERCENT AUTO 54 % (41-73); Platelet Count 195 K/mm3 (150-400); RDW Coefficient Variation 12.2 % (11.7-14.2); RDW Standard Deviation 40.8 fL (35.1-46.3); Red Blood Cell Count 4.51 M/mm3 (3.80-5.20); White Blood Cell Count 6.94 K/mm3 (4.00-11.30)
[2022-04-24 16:48] LABS: Albumin, Blood 3.8 g/dL (3.4-5.0); Albumin/Globulin Ratio 1.1 (0.8-1.8); Bilirubin, Total 0.6 mg/dL (0.1-1.0); Bun/Creatinine Ratio 30.6 (12.0-20.0); Calcium, Blood 9.8 mg/dL (8.5-10.1); Creatinine, Blood 0.59 mg/dL (0.40-1.00); Globulin, Blood 3.5 g/dL (2.2-4.0); Total Protein, Blood 7.3 g/dL (6.4-8.2)
== END 2022-04-24 18:21 | disposition home or self-care (01) ==
LOC: ER 15:39
PROVIDERS: Physician Assistant
DX: R07.9 Chest pain, unspecified (principal); E11.9 Type 2 diabetes mellitus without complications; Z79.52 Long term (current) use of systemic steroids; Z79.899 Other long term (current) drug therapy; Z79.84 Long term (current) use of oral hypoglycemic drugs
CPT/HCPCS: 36415; 71046; 80053; 84484; 85025; 93005; 93010; 99283-25

== ENCOUNTER → 2022-05-01 | Outpatient (CLI) | payer MEDICARE, OTHER | END | disposition home or self-care (01) | LOC: LAB 14:28 → LAB SHORT 14:28 | DX: M54.50 Low back pain, unspecified (principal); R30.0 Dysuria | CPT/HCPCS: 87077; 87086; 87186 ==

== ENCOUNTER 2022-06-05 18:20 | Emergency (ER) | payer MEDICARE ==
[~2022-06-05] VITALS: Ht 170.2 cm; Wt 68.0 kg
[~2022-06-05 18:20] MED LIST changes: +AMOCLA875 PO; +PSEUDOEPHEDRINE30 M4 PO
[2022-06-05 19:38] LABS: BASOPHILS ABSOLUTE AUTO 0.02 K/mm3 (0.00-0.23); BASOPHILS PERCENT AUTO 0 % (0-2); EOSINOPHILS ABSOLUTE AUTO 1.54 K/mm3 (0.00-0.68); EOSINOPHILS PERCENT AUTO 16 % (0-6); Hematocrit 41.9 % (33.0-51.0); IMMATURE GRAN ABSOLUTE AUTO 0.02 K/mm3 (0.00-0.10); IMMATURE GRAN PERCENT AUTO 0 % (0-1); LYMPHOCYTES PERCENT AUTO 22 % (21-46); MONOCYTES ABSOLUTE AUTO 0.69 K/mm3 (0.16-1.47); MONOCYTES PERCENT AUTO 7 % (4-13); Mean Corpuscular HGB 31.1 pg (26.0-34.0); Mean Corpuscular HGB Conc 33.4 g/dL (31.5-36.5); Mean Corpuscular Volume 93 fL (80-100); Mean Platelet Volume 10.3 fL (9.1-12.4); NEUTROPHILS ABSOLUTE AUTO 5.41 K/mm3 (1.96-9.15); NEUTROPHILS PERCENT AUTO 55 % (41-73); Platelet Count 199 K/mm3 (150-400); RDW Coefficient Variation 12.3 % (11.7-14.2); RDW Standard Deviation 42.5 fL (35.1-46.3); White Blood Cell Count 9.78 K/mm3 (4.00-11.30)
[2022-06-05 20:02] LABS: Albumin, Blood 3.9 g/dL (3.4-5.0); Albumin/Globulin Ratio 1.1 (0.8-1.8); Bilirubin, Total 0.6 mg/dL (0.1-1.0); Calcium, Blood 9.8 mg/dL (8.5-10.1); Creatinine, Blood 0.61 mg/dL (0.40-1.00); Globulin, Blood 3.5 g/dL (2.2-4.0); Potassium, Blood 4.1 mmol/L (3.5-5.5); Total Protein, Blood 7.4 g/dL (6.4-8.2)
[2022-06-05] MEDS ORDERED: LEVO750 PO (20:55)
[2022-06-05] MEDS ORDERED: ZYRTEC10 M2 PO (20:55)
[2022-06-05] MEDS ORDERED: ROBITUSSIN PO (20:56)
== END 2022-06-05 21:40 | disposition home or self-care (01) ==
LOC: ER 18:20
PROVIDERS: Physician Assistant
DX: J01.90 Acute sinusitis, unspecified (principal); B96.89 Other specified bacterial agents as the cause of diseases classified elsewhere; E11.9 Type 2 diabetes mellitus without complications; J45.909 Unspecified asthma, uncomplicated; Z88.2 Allergy status to sulfonamides; Z88.5 Allergy status to narcotic agent; Z88.6 Allergy status to analgesic agent; Z79.899 Other long term (current) drug therapy
CPT/HCPCS: 36415; 70487; 80053; 85025; 99284-25; A9270; Q9967

== ENCOUNTER 2022-06-09 06:12 | Inpatient (IN) | payer MEDICARE, OTHER ==
[~2022-06-09] VITALS: Ht 170.2 cm; Wt 66.0 kg
[~2022-06-09 06:12] MED LIST changes: +LEVO750 PO; +ROBITUSSIN PO; +ZYRTEC10 M2 PO
[2022-06-09 07:06] LABS: Albumin, Blood 3.7 g/dL (3.4-5.0); Bilirubin, Total 0.4 mg/dL (0.1-1.0); Bun/Creatinine Ratio 27.2 (12.0-20.0); Calcium, Blood 9.3 mg/dL (8.5-10.1); Creatinine, Blood 0.63 mg/dL (0.40-1.00); Globulin, Blood 3.7 g/dL (2.2-4.0); Potassium, Blood 3.8 mmol/L (3.5-5.5); Total Protein, Blood 7.4 g/dL (6.4-8.2)
[2022-06-09 07:20] LABS: BASOPHILS ABSOLUTE AUTO 0.03 K/mm3 (0.00-0.23); BASOPHILS PERCENT AUTO 0 % (0-2); EOSINOPHILS ABSOLUTE AUTO 1.45 K/mm3 (0.00-0.68); EOSINOPHILS PERCENT AUTO 16 % (0-6); Hematocrit 42.2 % (33.0-51.0); Hemoglobin 14.2 g/dL (11.5-16.0); IMMATURE GRAN ABSOLUTE AUTO 0.05 K/mm3 (0.00-0.10); IMMATURE GRAN PERCENT AUTO 1 % (0-1); LYMPHOCYTES ABSOLUTE AUTO 3.54 K/mm3 (0.84-5.20); LYMPHOCYTES PERCENT AUTO 38 % (21-46); MONOCYTES ABSOLUTE AUTO 0.58 K/mm3 (0.16-1.47); MONOCYTES PERCENT AUTO 6 % (4-13); Mean Corpuscular HGB 31.1 pg (26.0-34.0); Mean Corpuscular HGB Conc 33.6 g/dL (31.5-36.5); Mean Corpuscular Volume 93 fL (80-100); NEUTROPHILS ABSOLUTE AUTO 3.67 K/mm3 (1.96-9.15); NEUTROPHILS PERCENT AUTO 39 % (41-73); Platelet Count 186 K/mm3 (150-400); RDW Coefficient Variation 12.2 % (11.7-14.2); RDW Standard Deviation 41.3 fL (35.1-46.3); Red Blood Cell Count 4.56 M/mm3 (3.80-5.20); White Blood Cell Count 9.32 K/mm3 (4.00-11.30)
[2022-06-09 08:05] LABS: Influenza A, PCR NEGATIVE (NEGATIVE); Influenza B, PCR NEGATIVE (NEGATIVE); Resp Syncytial Virus, PCR NEGATIVE (NEGATIVE); SARS-Cov-2 (COVID-19) PCR, MMC NEGATIVE (NEGATIVE)
--- NOTE | 2022-06-09 12:33 | NUR ---
PT ARRIVED TO FLOOR AT 1108. PT ON 4L NC AND OXYGENATING 93%. PT LOOKING COMFORTABLE AND UNDER NOT DISTRESS. AOX4 AND COPERATIVE OF CARE. CALL LIGHT WITHIN REACH WILL CONTINUE TO MONITOR.
--- NOTE | 2022-06-09 12:45 | NUR ---
MET WITH PT RN OUSIDE ROOM, SHE REPORTS PT DOING WELL. THERE IS SOME CONCERN ABOUT PT ABILITY TO MANAGE OWN MEDICATIONS. PT LIVES WITH DTR, BUT PT HASNT BEEN OPEN TO LETTING HER DTR HELP WITH MEDS. RN ALSO REPORTS PT CODE STATUS IS LMT INTERVENTIONS, AND PT VERBALISED TO HER THAT SHE DOESNT WANT TO BE INTUBATED AND THAT SHE HAS LIVED LONG ENOUGH. PT IS AWAKE AND SITTING IN BED. THIS RN MAKES INTRODUCTION AND EDUCATES ON PALLIATIVE CARE ROLE. PT REPORTS SHE IS CONFUSED ABOUT INSULIN DOSAGE AT HOME AND THAT IT WAS RECENTLY CHANGED. WE TALKED ABOUT THE POSSABILITY OF HER DTR HELPING WITH HER MEDS AND A PILL RECORDS MANAGEMENT SPECIALIST. PT C/O LIPS AND NOSE BEING DRY. PT WAS NOT WEARING HER O2, OXYGEN PLACED BACK ON HER NOSE AND ASKED AIDE FOR ADD A HUMIDIFIER. PT GIVEN CHAPSTICK. ADVISED PT I WOULD MEET WITH ER AGAIN TOMORROW. PALLIATIVE CARE WILL CONTINUE TO MONITOR AND OFFER SUPPORT. PT GIVEN CHAPSTICK AND
--- NOTE | 2022-06-09 16:19 | NUR ---
PT AOX4 AND COOPERATIVE OF CARE. PT HAS BEEN DOING WELL THROUGHOUT THE SHIFT ON 4L O2. PT REPORTED L HIP PAIN AND WAS TREATED PER EMAR. NO DISTRESS NOTED AT THIS TIME WILL CONTINUE TO MONITOR. PT IS ABLE TO MAKE NEEDS KNOWN AND HAS CALL LIGHT WITHIN REACH.
--- NOTE | 2022-06-10 04:22 | NUR ---
NIGHTSHIFT SUMMARY Patient admitted for acute respiratory failure. Supportive care provided, IV steriods, breathing tx, and 4lmp oxygen. Denies pain or discomfort, SOB with activity. Reports productive cough, clear sputum. Patient resting comfortably all night, respirations even/nonlabored. Vitals stable. Call light in reach, will continue to monitor.
[2022-06-10 05:27] LABS: BASOPHILS ABSOLUTE AUTO 0.02 K/mm3 (0.00-0.23); BASOPHILS PERCENT AUTO 0 % (0-2); EOSINOPHILS ABSOLUTE AUTO 0.01 K/mm3 (0.00-0.68); EOSINOPHILS PERCENT AUTO 0 % (0-6); Hematocrit 39.6 % (33.0-51.0); Hemoglobin 13.4 g/dL (11.5-16.0); IMMATURE GRAN ABSOLUTE AUTO 0.12 K/mm3 (0.00-0.10); IMMATURE GRAN PERCENT AUTO 1 % (0-1); LYMPHOCYTES ABSOLUTE AUTO 1.75 K/mm3 (0.84-5.20); LYMPHOCYTES PERCENT AUTO 11 % (21-46); MONOCYTES ABSOLUTE AUTO 0.34 K/mm3 (0.16-1.47); MONOCYTES PERCENT AUTO 2 % (4-13); Mean Corpuscular HGB 31.1 pg (26.0-34.0); Mean Corpuscular HGB Conc 33.8 g/dL (31.5-36.5); Mean Corpuscular Volume 92 fL (80-100); Mean Platelet Volume 10.3 fL (9.1-12.4); NEUTROPHILS ABSOLUTE AUTO 13.05 K/mm3 (1.96-9.15); NEUTROPHILS PERCENT AUTO 85 % (41-73); Platelet Count 176 K/mm3 (150-400); RDW Coefficient Variation 12.2 % (11.7-14.2); Red Blood Cell Count 4.31 M/mm3 (3.80-5.20); White Blood Cell Count 15.29 K/mm3 (4.00-11.30)
[2022-06-10 05:57] LABS: Bun/Creatinine Ratio 39.1 (12.0-20.0); Calcium, Blood 9.1 mg/dL (8.5-10.1); Creatinine, Blood 0.59 mg/dL (0.40-1.00); Potassium, Blood 4.2 mmol/L (3.5-5.5)
--- NOTE | 2022-06-10 14:51 | NUR ---
SHIFT SUMMARY PT RESTING QUIETLY AT START OF SHIFT. WOKE EASILY FOR CARE. UP TO EOB FOR MEALS. INDEPENDENT TO BSC TO VOID. DR SHABAZZ IN TO SEE PT THIS AM. PT HAVING COUGHING EPISODES. NEW MEDICATIONS ORDERED. PT DOING BETTER THIS AFTERNOON. REPORTS FEELING BETTER AND GETTING SOME REST. PT'S DAUGHTER IN TO VISIT FOR A WHILE. CBG'S ELEVATED; SEE CHART. INSULIN COVERAGE ADJUSTED, SEE EMAR. PT RECEIVING STEROIDS FOR BREATHING. PLEASANT AND CO-OP WITH CARE. DENIES FURTHER NEEDS AT THIS TIME. CALL LT IN REACH.
--- NOTE | 2022-06-10 17:15 | NUR ---
RN OUTSIDE ROOM, REPORTS PT IS DOING WELL WITH NO CONCERNS AT THIS TIME. PT SITTING IN ROOM, RESTINTG COMF. PT SMILES WHEN I ENTER THE ROOM. SHE DENIES PAIN, REPORTS SHE IS FEELING BETTER TODAY, SLEPT WELL LAST NIGHT AND DOESNT USUSALLY SLEEP WELL WHEN SHE IS AT HOME. PT AGAIN IS CONFUSED ABOUT HER INCULIN REGINMEN AT HOME AND ASKS ABOUT IT. I REASSURRED HER THAT THR RN WILL EDUCATE HER ON WHAT INSULIN AND DOSAGE WHEN SHE GOES HOME. DAUGHTER AT THE BESIDE FROM [place]. SHE IS FIRENDLY AND HAS NO QUESTIONS OR CONCERNS AT THIS TIME. PALLIATIVE CARE WILL CONTINUE TO FOLLOW AND SUPPORT NEEDED.
--- NOTE | 2022-06-11 06:31 | NUR ---
SHIFT SUMMARY - PT'S CBG'S REMAIN HIGH - SEE LAB, AND EMAR FOR FOLLOW THROUGH. PT IS ON SOLUMEDROL, AND FAMILY MEMBER RELAYS PT HAS HAD ELEVATED CBG'S AT HOME ALSO (DIDN'T STATE CBG NUMBERS.) PT WOKE UP WITH A PRODUCTIVE COUGH THIS AM, AND RELAYS THIS HAS BEEN ONGOING AT HOME FOR "QUITE SOME TIME." PT RELAYS HER SPUTUM IS CLEAR IN COLOR. PT DECLINED ICE CHIPS OR TYLENOL FOR THROAT DISCOMFORT. PT DENIES ANY HEADACHE, CHEST PAIN, OR NAUSEA. PT REMAINED ON RA THROUGHOUT THE NIGHT. CALL LIGHT WITHIN REACH. BED IN LOW POSITION. PT HAS BEEN UP INDEPENDENTLY IN THE ROOM - STABLE WITH AMBULATION. FLUIDS AT BEDSIDE. WILL CONTINUE TO MONITOR UNTIL AM SHIFT CHANGE.
[2022-06-11 06:37] LABS: BASOPHILS ABSOLUTE AUTO 0.02 K/mm3 (0.00-0.23); BASOPHILS PERCENT AUTO 0 % (0-2); EOSINOPHILS ABSOLUTE AUTO 0.01 K/mm3 (0.00-0.68); EOSINOPHILS PERCENT AUTO 0 % (0-6); Hematocrit 36.4 % (33.0-51.0); Hemoglobin 12.7 g/dL (11.5-16.0); IMMATURE GRAN ABSOLUTE AUTO 0.19 K/mm3 (0.00-0.10); IMMATURE GRAN PERCENT AUTO 1 % (0-1); LYMPHOCYTES ABSOLUTE AUTO 1.74 K/mm3 (0.84-5.20); LYMPHOCYTES PERCENT AUTO 12 % (21-46); MONOCYTES ABSOLUTE AUTO 0.37 K/mm3 (0.16-1.47); MONOCYTES PERCENT AUTO 3 % (4-13); Mean Corpuscular HGB 31.8 pg (26.0-34.0); Mean Corpuscular HGB Conc 34.9 g/dL (31.5-36.5); Mean Corpuscular Volume 91 fL (80-100); Mean Platelet Volume 10.3 fL (9.1-12.4); NEUTROPHILS ABSOLUTE AUTO 11.86 K/mm3 (1.96-9.15); NEUTROPHILS PERCENT AUTO 84 % (41-73); Platelet Count 175 K/mm3 (150-400); RDW Coefficient Variation 12.4 % (11.7-14.2); RDW Standard Deviation 41.3 fL (35.1-46.3); White Blood Cell Count 14.19 K/mm3 (4.00-11.30)
[2022-06-11 07:07] LABS: Bun/Creatinine Ratio 61.7 (12.0-20.0); Calcium, Blood 9.4 mg/dL (8.5-10.1); Creatinine, Blood 0.57 mg/dL (0.40-1.00)
--- NOTE | 2022-06-11 18:04 | NUR ---
SHIFT SUMMARY PT A&OX4 AND IN PLEASENT MOOD T/O SHIFT. BLOOD GLUCOSE MEDICATED PER HIGH SLIDE SCALE, HIGH BLOOD GLUCOSE REPORTED TO T/O SHIFT-LONG ACTING INSULIN DOSE INCREASE. TOLERATING PO INTAKE WELL. CALL LIGHT W/IN REACH. RA @ THIS TIME, DENIES PAIN.
--- NOTE | 2022-06-11 21:17 | NUR ---
CBG THIS EVENING 434. NO COVERAGE ORDERED WITH HS. CALL TO DR. NAVA WHO ORDERED TO GIVE A ONE TIME DOSE OF 6 UNITS HUMALOG AND TO RECHECK CBG IN 2 HOURS.
--- NOTE | 2022-06-12 04:36 | NUR ---
SHIFT SUMMARY PT SLEPT OFF AND ON THIS EVENING. REMAINED ON RA WITH O2 SATS IN THE MID 90'S. NAGGING PRODUCTIVE COUGH INTERMITTENTLY. TELEMETRY SINUS RHYTHM IN THE 80'S. CBG 434 WITH HS CHECK. NO COVERAGE ORDERED. NOTIFIED DR. NAVA. ONE TIME DOSE OF 6 UNITS HUMALOG ORDERED. VITAL SIGNS STABLE. PT RESTING COMFORTABLY AT THIS TIME.
[2022-06-12 09:39] LABS: BASOPHILS ABSOLUTE AUTO 0.01 K/mm3 (0.00-0.23); BASOPHILS PERCENT AUTO 0 % (0-2); EOSINOPHILS ABSOLUTE AUTO 0.14 K/mm3 (0.00-0.68); EOSINOPHILS PERCENT AUTO 1 % (0-6); Hematocrit 40.3 % (33.0-51.0); Hemoglobin 13.8 g/dL (11.5-16.0); IMMATURE GRAN PERCENT AUTO 1 % (0-1); LYMPHOCYTES ABSOLUTE AUTO 3.39 K/mm3 (0.84-5.20); LYMPHOCYTES PERCENT AUTO 26 % (21-46); MONOCYTES PERCENT AUTO 6 % (4-13); Mean Corpuscular HGB 31.7 pg (26.0-34.0); Mean Corpuscular HGB Conc 34.2 g/dL (31.5-36.5); Mean Corpuscular Volume 92 fL (80-100); Mean Platelet Volume 10.3 fL (9.1-12.4); NEUTROPHILS ABSOLUTE AUTO 8.54 K/mm3 (1.96-9.15); NEUTROPHILS PERCENT AUTO 66 % (41-73); Platelet Count 189 K/mm3 (150-400); RDW Coefficient Variation 12.8 % (11.7-14.2); RDW Standard Deviation 43.7 fL (35.1-46.3); Red Blood Cell Count 4.36 M/mm3 (3.80-5.20); White Blood Cell Count 12.98 K/mm3 (4.00-11.30)
[2022-06-12 10:04] LABS: Bun/Creatinine Ratio 48.8 (12.0-20.0); Calcium, Blood 9.2 mg/dL (8.5-10.1); Creatinine, Blood 0.57 mg/dL (0.40-1.00); Potassium, Blood 3.4 mmol/L (3.5-5.5)
[2022-06-12] MEDS ORDERED: ALBU2.5V5 NEB (12:59)
[2022-06-12] MEDS ORDERED: GUAI600T33 PO (13:03)
[2022-06-12] MEDS ORDERED: INSULIN GL100 UNIT/2 SC (13:06)
[2022-06-12] MEDS ORDERED: HUMALOG KW100 UNIT/1 SC (13:07)
[2022-06-12] MEDS ORDERED: LOSA50 PO (13:08)
[2022-06-12] MEDS ORDERED: DELTASONE20 MG PO (13:11)
[2022-06-12] MEDS ORDERED: AZIT250 PO (13:12)
[2022-06-12] MEDS ORDERED: SPIRIVA RESPIMAT4 G3 INH (13:14)
[2022-06-12] MEDS ORDERED: Pulmicort Fle180 MCG INH (13:15)
--- NOTE | 2022-06-12 18:33 | NUR ---
SHIFT SUMMARY PT A&OX4 AND IN PLEASENT MOOD T/O SHIFT. DC COMPLETE, AWAITING TRANSPORT. CALL LIGHT W/IN REACH. PLAN TO DC IV WHEN TRANSPORT ARRIVES. TOLERATING PO INTAKE, RA, VSS.
== END 2022-06-12 19:03 | disposition home or self-care (01) | DRG 189 ==
LOC: ER 06:12 → MEDS 09:08
PROVIDERS: Emergency Medicine; Internal Medicine; ADMIT Internal Medicine
DX: J96.01 Acute respiratory failure with hypoxia (principal); J44.1 Chronic obstructive pulmonary disease with (acute) exacerbation; Z20.822 Contact with and (suspected) exposure to COVID-19; Z66 Do not resuscitate; M10.9 Gout, unspecified; K21.9 Gastro-esophageal reflux disease without esophagitis; E11.40 Type 2 diabetes mellitus with diabetic neuropathy, unspecified; E78.5 Hyperlipidemia, unspecified; E11.65 Type 2 diabetes mellitus with hyperglycemia; T38.0X5A Adverse effect of glucocorticoids and synthetic analogues, initial encounter; Z90.49 Acquired absence of other specified parts of digestive tract; Z90.710 Acquired absence of both cervix and uterus; Z88.2 Allergy status to sulfonamides; Z88.5 Allergy status to narcotic agent; Z88.8 Allergy status to other drugs, medicaments and biological substances; Z79.52 Long term (current) use of systemic steroids; Z79.84 Long term (current) use of oral hypoglycemic drugs; Z79.899 Other long term (current) drug therapy
CPT/HCPCS: 0241U; 36415; 71045; 80048; 80053; 82607; 82746; 82947; 83880; 84484; 85025; 93005; 93010; 94640; 94644; 94664; 94760; A9270; J0696; J1650; J1815; J2930; J7050; J7512

== ENCOUNTER → 2022-10-25 | Outpatient (CLI) | payer OTHER ==
[~2022-10-25] MED LIST changes: +GUAI600T33 PO; +HUMALOG KW100 UNIT/1 SC; +INSULIN GL100 UNIT/2 SC; +Pulmicort Fle180 MCG INH; +SPIRIVA RESPIMAT4 G3 INH
[2022-10-25 13:19] LABS: BASOPHILS ABSOLUTE AUTO 0.03 K/mm3 (0.00-0.23); BASOPHILS PERCENT AUTO 1 % (0-2); EOSINOPHILS ABSOLUTE AUTO 0.61 K/mm3 (0.00-0.68); EOSINOPHILS PERCENT AUTO 10 % (0-6); Hematocrit 37.5 % (33.0-51.0); Hemoglobin 12.7 g/dL (11.5-16.0); IMMATURE GRAN ABSOLUTE AUTO 0.02 K/mm3 (0.00-0.10); IMMATURE GRAN PERCENT AUTO 0 % (0-1); LYMPHOCYTES ABSOLUTE AUTO 2.09 K/mm3 (0.84-5.20); LYMPHOCYTES PERCENT AUTO 32 % (21-46); MONOCYTES ABSOLUTE AUTO 0.34 K/mm3 (0.16-1.47); MONOCYTES PERCENT AUTO 5 % (4-13); Mean Corpuscular HGB 31.1 pg (26.0-34.0); Mean Corpuscular HGB Conc 33.9 g/dL (31.5-36.5); Mean Corpuscular Volume 92 fL (80-100); Mean Platelet Volume 10.4 fL (9.1-12.4); NEUTROPHILS ABSOLUTE AUTO 3.36 K/mm3 (1.96-9.15); NEUTROPHILS PERCENT AUTO 52 % (41-73); Platelet Count 180 K/mm3 (150-400); RDW Coefficient Variation 12.5 % (11.7-14.2); RDW Standard Deviation 41.9 fL (35.1-46.3); Red Blood Cell Count 4.08 M/mm3 (3.80-5.20); White Blood Cell Count 6.45 K/mm3 (4.00-11.30)
[2022-10-25 13:28] LABS: Albumin, Blood 3.5 g/dL (3.4-5.0); Bilirubin, Total 0.4 mg/dL (0.1-1.0); Bun/Creatinine Ratio 18.2 (12.0-20.0); Calcium, Blood 9.1 mg/dL (8.5-10.1); Creatinine, Blood 0.77 mg/dL (0.40-1.00); Globulin, Blood 3.4 g/dL (2.2-4.0); Potassium, Blood 4.1 mmol/L (3.5-5.5); Total Protein, Blood 6.9 g/dL (6.4-8.2)
== END | disposition home or self-care (01) ==
LOC: LAB SHORT 13:09 → LAB 13:09
PROVIDERS: Physician Assistant
DX: R07.9 Chest pain, unspecified (principal); R06.00 Dyspnea, unspecified
CPT/HCPCS: 80053; 83880; 84484; 85025

== ENCOUNTER 2023-01-09 17:12 | Emergency (ER) | payer OTHER ==
[~2023-01-09] VITALS: Ht 170.2 cm; Wt 68.0 kg
[2023-01-09 17:38] LABS: BASOPHILS ABSOLUTE AUTO 0.06 K/mm3 (0.00-0.23); BASOPHILS PERCENT AUTO 1 % (0-2); EOSINOPHILS ABSOLUTE AUTO 1.26 K/mm3 (0.00-0.68); EOSINOPHILS PERCENT AUTO 13 % (0-6); Hematocrit 39.4 % (33.0-51.0); Hemoglobin 13.3 g/dL (11.5-16.0); IMMATURE GRAN ABSOLUTE AUTO 0.03 K/mm3 (0.00-0.10); IMMATURE GRAN PERCENT AUTO 0 % (0-1); LYMPHOCYTES ABSOLUTE AUTO 2.13 K/mm3 (0.84-5.20); LYMPHOCYTES PERCENT AUTO 21 % (21-46); MONOCYTES ABSOLUTE AUTO 0.46 K/mm3 (0.16-1.47); MONOCYTES PERCENT AUTO 5 % (4-13); Mean Corpuscular HGB 31.2 pg (26.0-34.0); Mean Corpuscular HGB Conc 33.8 g/dL (31.5-36.5); Mean Corpuscular Volume 93 fL (80-100); Mean Platelet Volume 9.7 fL (9.1-12.4); NEUTROPHILS ABSOLUTE AUTO 6.02 K/mm3 (1.96-9.15); NEUTROPHILS PERCENT AUTO 60 % (41-73); Platelet Count 234 K/mm3 (150-400); RDW Coefficient Variation 12.1 % (11.7-14.2); Red Blood Cell Count 4.26 M/mm3 (3.80-5.20); White Blood Cell Count 9.96 K/mm3 (4.00-11.30)
[2023-01-09 18:01] LABS: Albumin, Blood 3.5 g/dL (3.4-5.0); Albumin/Globulin Ratio 0.9 (0.8-1.8); Bilirubin, Total 0.5 mg/dL (0.1-1.0); Calcium, Blood 9.3 mg/dL (8.5-10.1); Creatinine, Blood 0.65 mg/dL (0.40-1.00); Globulin, Blood 3.9 g/dL (2.2-4.0); Potassium, Blood 3.9 mmol/L (3.5-5.5); Total Protein, Blood 7.4 g/dL (6.4-8.2)
[2023-01-09 18:02] LABS: Source, Urine Clean Catch
[2023-01-09 18:11] LABS: Appearance, Urine Cloudy (Clear); Bilirubin, Urine Neg (Neg); Blood, Urine 3+ (Neg); Color, Urine Yellow (P-Yellow); Glucose Qualitative, Urine 4+ (Neg); Ketones, Urine Neg (Neg); Leukocyte Esterase, Urine 3+ (Neg); Nitrite, Urine Pos (Neg); Protein, Urine 2+ (Neg); Urobilinogen, Urine NORM (Normal)
[2023-01-09 18:32] LABS: Bacteria Many /hpf; Squamous Epithelial Cells Few /hpf (Few); Transitional Epithelial Cells Few /hpf (0-Rare); White Blood Cells, Urine TNTC /hpf (0-5)
[2023-01-09] MEDS ORDERED: CEPH500 PO (20:27)
[2023-01-09] MEDS ORDERED: LORA10ER PO (20:27)
[2023-01-09 20:30] VITALS: BP 100/55
== END 2023-01-09 21:01 | disposition home or self-care (01) ==
LOC: ER 17:12
PROVIDERS: Student in an Organized Health Care Education/Training Program
DX: R07.89 Other chest pain (principal); L29.9 Pruritus, unspecified; N39.0 Urinary tract infection, site not specified; Z88.2 Allergy status to sulfonamides; Z88.5 Allergy status to narcotic agent; Z88.8 Allergy status to other drugs, medicaments and biological substances; Z79.899 Other long term (current) drug therapy; Z79.84 Long term (current) use of oral hypoglycemic drugs; Z79.4 Long term (current) use of insulin; Z79.52 Long term (current) use of systemic steroids; E11.9 Type 2 diabetes mellitus without complications; M10.9 Gout, unspecified; K21.9 Gastro-esophageal reflux disease without esophagitis; J44.9 Chronic obstructive pulmonary disease, unspecified
CPT/HCPCS: 71046; 80053; 81001; 83735; 83880; 84484; 85025; 87077; 87086; 87186; 93005; 93010; A9270; J0696

== ENCOUNTER → 2023-04-24 | Outpatient (CLI) | payer OTHER ==
[~2023-04-24] MED LIST changes: +CEPH500 PO
== END | disposition home or self-care (01) ==
LOC: LAB SHORT 15:00 → LAB 15:00
DX: N39.0 Urinary tract infection, site not specified (principal)
CPT/HCPCS: 87077; 87086; 87186

== ENCOUNTER → 2023-06-04 | Outpatient (CLI) | payer OTHER | END | disposition home or self-care (01) | LOC: LAB 16:30 → LAB SHORT 16:30 | DX: R35.0 Frequency of micturition (principal) | CPT/HCPCS: 87077; 87086; 87186 ==

== ENCOUNTER 2023-09-20 15:12 | Emergency (ER) | payer OTHER ==
[~2023-09-20] VITALS: Ht 170.2 cm; Wt 61.7 kg
[2023-09-20 15:42] LABS: BASOPHILS ABSOLUTE AUTO 0.05 K/mm3 (0.00-0.23); BASOPHILS PERCENT AUTO 1 % (0-2); EOSINOPHILS ABSOLUTE AUTO 0.54 K/mm3 (0.00-0.68); EOSINOPHILS PERCENT AUTO 7 % (0-6); Hemoglobin 14.3 g/dL (11.5-16.0); IMMATURE GRAN ABSOLUTE AUTO 0.01 K/mm3 (0.00-0.10); IMMATURE GRAN PERCENT AUTO 0 % (0-1); LYMPHOCYTES PERCENT AUTO 30 % (21-46); MONOCYTES ABSOLUTE AUTO 0.47 K/mm3 (0.16-1.47); MONOCYTES PERCENT AUTO 6 % (4-13); Mean Corpuscular HGB 31.2 pg (26.0-34.0); Mean Corpuscular Volume 92 fL (80-100); Mean Platelet Volume 9.6 fL (9.1-12.4); NEUTROPHILS ABSOLUTE AUTO 4.37 K/mm3 (1.96-9.15); NEUTROPHILS PERCENT AUTO 57 % (41-73); Platelet Count 196 K/mm3 (150-400); RDW Coefficient Variation 12.2 % (11.7-14.2); RDW Standard Deviation 40.8 fL (35.1-46.3); Red Blood Cell Count 4.58 M/mm3 (3.80-5.20); White Blood Cell Count 7.74 K/mm3 (4.00-11.30)
[2023-09-20 16:00] LABS: Albumin, Blood 3.8 g/dL (3.4-5.0); Bilirubin, Total 0.7 mg/dL (0.1-1.0); Calcium, Blood 9.3 mg/dL (8.5-10.1); Creatinine, Blood 0.57 mg/dL (0.40-1.00); Globulin, Blood 3.7 g/dL (2.2-4.0); Total Protein, Blood 7.5 g/dL (6.4-8.2)
[2023-09-20] MEDS ORDERED: FAMO20 PO ×3 (19:07→19:44)
[2023-09-20] MEDS ORDERED: Benadryl Itch28.3 G1 TOP ×3 (19:07→19:44)
[2023-09-20 19:38] VITALS: BP 137/89
== END 2023-09-20 19:38 | disposition home or self-care (01) ==
LOC: ER 15:12
PROVIDERS: Student in an Organized Health Care Education/Training Program
DX: R12 Heartburn (principal); R07.89 Other chest pain; E11.9 Type 2 diabetes mellitus without complications; J44.89 Other specified chronic obstructive pulmonary disease; M10.9 Gout, unspecified; M19.90 Unspecified osteoarthritis, unspecified site; K21.9 Gastro-esophageal reflux disease without esophagitis; Z79.51 Long term (current) use of inhaled steroids; Z79.899 Other long term (current) drug therapy; Z79.4 Long term (current) use of insulin; Z88.2 Allergy status to sulfonamides; Z88.5 Allergy status to narcotic agent; Z88.6 Allergy status to analgesic agent; Z88.4 Allergy status to anesthetic agent; Z88.8 Allergy status to other drugs, medicaments and biological substances
CPT/HCPCS: 71046; 80053; 83690; 84484; 85025; 99285-25; A9270

== ENCOUNTER → 2024-02-25 | Outpatient (CLI) | payer OTHER ==
[~2024-02-25] MED LIST changes: +Benadryl Itch28.3 G1 TOP; +FAMO20 PO
== END | disposition home or self-care (01) ==
LOC: LAB SHORT 17:50 → LAB 17:50
DX: R39.9 Unspecified symptoms and signs involving the genitourinary system (principal)
CPT/HCPCS: 87077; 87086; 87186

== ENCOUNTER 2024-09-21 10:29 | Day surgery (SDC) | payer OTHER ==
[2024-09-21] VITALS (12 sets, daily range): BP systolic 141–170; BP diastolic 59–88
[~2024-09-21] VITALS: Ht 170.2 cm; Wt 59.2 kg
[~2024-09-21 10:29] MED LIST changes: +Lactated Ringer's 1,000 ML IV ONE
[2024-09-21] MEDS ORDERED: Tranexamic Acid 100 ML IV ONE ×2 (10:58→15:03)
[2024-09-21] MEDS ORDERED: Lactated Ringer's 1,000 ML IV ONE ×3 (11:10→15:35)
[2024-09-21] MEDS ORDERED: SEMGLEE (Y100 UNIT/2 (11:10)
[2024-09-21] MEDS ORDERED: TRELEGY ELLIPT1 EACH IH (11:11)
[2024-09-21] MEDS ORDERED: IPRAT-ALBUT 0.5-3 ML IH (11:12)
[2024-09-21] MEDS ORDERED: CLAR500 PO (11:13)
[2024-09-21] MEDS ORDERED: PRED20 PO (11:13)
--- NOTE | 2024-09-21 11:34 | NUR ---
09/21/24 1134 Sayra Licona PER PATIENT AND DAUGHTER PATIENT TOOK HER BLOOD SUGAR THIS MORNING AT 0730 AND HER BLOOD SUGAR WAS 192 SO SHE TOOK ONE UNIT OF SEMGLEE AT 0730. RN NOTIFIED DR RONQUILLO AND LAKSHMI HERNANDEZ CRNA.
[2024-09-21] MEDS ORDERED: Lidocaine 1%-Epineph 1:200000 30 ML SDV ONE ×2 (11:51→16:07)
[2024-09-21] MEDS ORDERED: EPINEPhrine HCl 1 MG / ML 30ML Vial ONE (11:51)
[2024-09-21] MEDS ORDERED: Etomidate 2MG / ML 10ML Vial ONE ×2 (12:01→16:09)
[2024-09-21] MEDS ORDERED: FentaNYL Citrate 50 MCG/ML 2 ML Injection ONE ×3 (12:08→17:18)
[2024-09-21] MEDS ORDERED: Rocuronium Bromide 10 MG/ML 5ML Injection IV ONE ×2 (12:09→15:56)
[2024-09-21] MEDS ORDERED: Dexamethasone Sod Phos 10 MG/ML 1ML VIAL ONE ×2 (14:04→15:56)
[2024-09-21] MEDS ORDERED: Phenylephrine HCl 100 MCG/ML-NS 10MLSYR (1MG/10ML) ONE (14:04)
[2024-09-21] MEDS ORDERED: Ondansetron HCl 2 MG / ML 2ML Vial ONE ×2 (14:04→15:56)
[2024-09-21] MEDS ORDERED: Sugammadex Sodium 200 MG/2ML SDV (100 MG/ML) ONE (14:04)
[2024-09-21] MEDS ORDERED: Ketorolac Tromethamine 30mg Vial ONE (14:04)
[2024-09-21] MEDS ORDERED: Oxymetazoline 0.05% Nasal Relief Spray 15mL BTL ONE ×2 (15:04→16:09)
[2024-09-21] MEDS ORDERED: Labetalol HCL 5 MG/ML 4ML Injection (Single Dose) ONE (15:18)
[2024-09-21] MEDS ORDERED: propofoL 20 ML IV ONE (15:53)
--- NOTE | 2024-09-21 15:55 | NUR ---
09/21/[address] CALLED W/ REPORT OF ARRYTHMIAS 12 LEAD RAN AND SHOWN TO DR BYRNE ANESTHESIOLOGIST ON STAFF. AND DR MOONEY. PT BP WAS ELEVATED AND PT WAS BLEEDING DOWN BACK OF THROAT CONTINUOUS SUCTIONING OF BLOOD. DR RONQUILLO CAME AND ASSESSED CONSULTED W/ DR MOONEY AND DR MARTINS RECOMMENDING PT GO BACK INTO OR TO ASSESS BLEED. DR RONQUILLO GAVE AFRIN NASAL SPRAY AND ORDERED TXA SECOND DOSE 1509. PT CONTINUED TO BLEED FROM NOSE. PT SITTING UP AND SPITTING BLOOD IN EMESIS BAG. DR MARTINS SAID EKG WAS BASELINE. PRODUCT SALES REPRESENTATIVE COORDINATING TRANSFER CARE TO [facility] AND OR.
[2024-09-21] MEDS ORDERED: SuccINYLCHOLINE Chloride 100 MG/5 ML 5MLSYR ONE (15:56)
[2024-09-21] MEDS ORDERED: EpiNEPhrine 1 MG/1 ML 1ML Vial ONE ×2 (16:07→16:09)
[2024-09-21] MEDS ORDERED: Bacitracin Zinc Oint 1GRAM UD Packet TOP SCH (16:25)
[2024-09-21] MEDS ORDERED: Insulin Regular 100 UNIT/ML 10ML Vial ONE (17:33)
[2024-09-21 17:39] LABS: Hematocrit 33.2 % (33.0-51.0); Hemoglobin 11.5 g/dL (11.5-16.0)
--- NOTE | 2024-09-21 18:13 | NUR ---
PT ARRIVED FROM OR SLEEPY VSS. 3 LEAD APPERED SR TIME WENT ON POSS AFIB SHOWING ON MONITOR.LAB HERE TO FOR STAT H&H DRAW, UNABLE TO GET. BLOOD TAKEN FROM IV SITE. AND IV THEN INFILTRATED. LAB THEN CALLED AND BLOOD HAD CLOTTED. NEW IV STARTED AND BLOOD TAKEN FROM IV. 12 L EKG DONE TO R/O AFIB. RESUTS WERE SR WITH MARKED SINUS ARRYTHMIAS. PT SPITTING UP FREQUENT BLOODY MOUCOUS.PT USING SX HERSELF FOR FREQUENT MUCOUS BY END OF PACU STAY BLOODY MUCOUS IS AT A MINIMUM. PT GIVEN FENTANYL TOTAL OF 37.5 MCG FOR NOSE EAR AND HEAD PAIN. DENIES NAUSEA. 5U INSULIN GIVEN FOR BS OF 281. PT WAS TO BE HELD IN PACU UNTIL H&H RESULTS BACK. H&H BACK AND IS WITH IN RANGE. 1802 PT TO STEP
--- NOTE | 2024-09-21 18:28 | NUR ---
Discharge instructions reviewed with patient. Patient verbalizes understanding. Copy given to patient to take home. Patient States Post-Procedure ride home has been arranged. Discharged via wheelchair to private car for ride home.
[2024-09-21] MEDS ORDERED: Insulin Regular 100 UNIT/ML 10ML Vial SC ONE (21:00)
== END 2024-09-21 16:15 | disposition other institution (70) ==
LOC: ORSCSDS 10:29
PROVIDERS: Nurse Anesthetist, Certified Registered; Otolaryngology
PROC: 09TL4ZZ Resection of Nasal Turbinate, Percutaneous Endoscopic Approach (ICD-10-PCS; principal; 2024-09-21 12:00)
PROC: 09DV4ZZ Extraction of Left Ethmoid Sinus, Percutaneous Endoscopic Approach (ICD-10-PCS; principal; 2024-09-21 12:00)
PROC: 09DU4ZZ Extraction of Right Ethmoid Sinus, Percutaneous Endoscopic Approach (ICD-10-PCS; principal; 2024-09-21 12:00)
PROC: 099R4ZZ Drainage of Left Maxillary Sinus, Percutaneous Endoscopic Approach (ICD-10-PCS; principal; 2024-09-21 12:00)
PROC: 09SM4ZZ Reposition Nasal Septum, Percutaneous Endoscopic Approach (ICD-10-PCS; principal; 2024-09-21 12:00)
DX: J32.4 Chronic pansinusitis (principal); J34.2 Deviated nasal septum; J34.3 Hypertrophy of nasal turbinates; I10 Essential (primary) hypertension; E11.9 Type 2 diabetes mellitus without complications; K21.9 Gastro-esophageal reflux disease without esophagitis; Z79.899 Other long term (current) drug therapy; Z79.4 Long term (current) use of insulin
CPT/HCPCS: 36415; 82947; 85014; 85018; 93005; 93010; A9270; C1713; C2625; J0171; J0330; J1100; J1815; J1885; J2371; J2405; J2704; J3010; J7120

== ENCOUNTER 2025-06-18 16:59 | Emergency (ER) | payer OTHER ==
[~2025-06-18] VITALS: Ht 170.2 cm; Wt 61.2 kg
[~2025-06-18 16:59] MED LIST changes: +CLAR500 PO; +CO Q10100 MG PO; +IPRAT-ALBUT 0.5-3 ML IH; -Lactated Ringer's 1,000 ML IV ONE; +SEMGLEE (Y100 UNIT/2; +TRELEGY ELLIPT1 EACH IH; +TURMERIC750 MG; +Vitamin D1000 UNI1
[2025-06-18 17:39] LABS: BASOPHILS ABSOLUTE AUTO 0.06 K/mm3 (0.00-0.23); BASOPHILS PERCENT AUTO 1 % (0-2); EOSINOPHILS ABSOLUTE AUTO 1.54 K/mm3 (0.00-0.68); EOSINOPHILS PERCENT AUTO 19 % (0-6); Hematocrit 42.0 % (33.0-51.0); Hemoglobin 14.3 g/dL (11.5-16.0); IMMATURE GRAN ABSOLUTE AUTO 0.01 K/mm3 (0.00-0.10); IMMATURE GRAN PERCENT AUTO 0 % (0-1); LYMPHOCYTES ABSOLUTE AUTO 1.63 K/mm3 (0.84-5.20); LYMPHOCYTES PERCENT AUTO 20 % (21-46); MONOCYTES ABSOLUTE AUTO 0.44 K/mm3 (0.16-1.47); MONOCYTES PERCENT AUTO 5 % (4-13); Mean Corpuscular HGB Conc 34.0 g/dL (31.5-36.5); Mean Corpuscular Volume 92 fL (80-100); NEUTROPHILS ABSOLUTE AUTO 4.54 K/mm3 (1.96-9.15); NEUTROPHILS PERCENT AUTO 55 % (41-73); NRBC ABSOLUTE 0.00 K/mm3 (0.00-0.02); NRBC Auto 0.0 /100 WBC (0.0-0.2); Platelet Count 195 K/mm3 (150-400); RDW Coefficient Variation 12.7 % (11.7-14.2); RDW Standard Deviation 42.7 fL (35.1-46.3)
[2025-06-18 18:11] LABS: Alanine Aminotransfer (ALT/SGP 33.0 U/L (12-78); Albumin, Blood 3.9 g/dL (3.4-5.0); Albumin/Globulin Ratio 1.1 (0.8-1.8); Anion Gap 6.0 mmol/L (3-11); Aspartate Aminotrans (AST/SGOT 24.0 U/L (12-37); Bilirubin, Total 0.7 mg/dL (0.1-1.0); Blood Urea Nitrogen 14.0 mg/dL (8-24); CO2, Blood 29.0 mmol/L (21-32); Calcium, Blood 9.4 mg/dL (8.5-10.1); Chloride, Blood 106.0 mmol/L (98-108); Creatinine, Blood 0.51 mg/dL (0.40-1.00); Globulin, Blood 3.6 g/dL (2.2-4.0); Glucose, Blood 179.0 mg/dL (70-99); Potassium, Blood 4.1 mmol/L (3.5-5.5); Sodium, Blood 137.0 mmol/L (136-145); Total Protein, Blood 7.5 g/dL (6.4-8.2)
[2025-06-18] MEDS ORDERED: Ventolin5 MG/1 ML INH (18:37)
[2025-06-18] MEDS ORDERED: BUDESONIDE1 MG/2 M1 INH (18:37)
[2025-06-18] MEDS ORDERED: Ipratropium/Albuterol SulF 2.5-0.5MG/3 ML Amp INH ONE (19:05)
[2025-06-18] MEDS ORDERED: PRED20 PO (19:29)
[2025-06-18 20:23] VITALS: BP 123/90
[2025-06-18 20:25] LABS: CORONAVIRUS COVID-19 AG Negative (NEGATIVE)
== END 2025-06-18 20:35 | disposition home or self-care (01) ==
LOC: ER 16:59
PROVIDERS: Emergency Medicine; Physician Assistant
DX: J44.1 Chronic obstructive pulmonary disease with (acute) exacerbation (principal); I10 Essential (primary) hypertension; E11.9 Type 2 diabetes mellitus without complications; E78.5 Hyperlipidemia, unspecified; Z88.2 Allergy status to sulfonamides; Z88.5 Allergy status to narcotic agent; Z88.8 Allergy status to other drugs, medicaments and biological substances; Z79.4 Long term (current) use of insulin; Z79.899 Other long term (current) drug therapy
CPT/HCPCS: 71046; 80053; 83880; 84484; 85025; 87428-QW; 93005; 93010; 96374; 99285-25; J2919